=== PATIENT | male | born 1955 | race Caucasian/White ===

== ENCOUNTER → 2019-03-03 08:57 | Outpatient (BNVA) | payer MEDICARE, MEDICAID, SELFPAY | PROVIDERS: PCP Family Medicine; Referring Provider Psychiatry & Neurology Psychiatry; Visit Provider Nurse Practitioner | DX: F41.1 Generalized anxiety disorder (principal); F33.41 Major depressive disorder, recurrent, in partial remission | CPT/HCPCS: 99213 ==

== ENCOUNTER → 2019-05-02 08:43 | Outpatient (BNVA) | payer MEDICARE, MEDICAID, SELFPAY | PROVIDERS: PCP Nurse Practitioner; Visit Provider Social Worker Clinical | DX: F33.41 Major depressive disorder, recurrent, in partial remission (principal); F41.1 Generalized anxiety disorder | CPT/HCPCS: 90834 ==

== ENCOUNTER → 2019-05-04 08:34 | Outpatient (BNVA) | payer MEDICARE, MEDICAID, SELFPAY | PROVIDERS: PCP Nurse Practitioner; Visit Provider Anesthesiology | DX: M25.561 Pain in right knee (principal); M25.562 Pain in left knee; M54.9 Dorsalgia, unspecified; Z79.891 Long term (current) use of opiate analgesic | CPT/HCPCS: 99213; 99214 ==

== ENCOUNTER → 2019-05-24 08:46 | Outpatient (BNVA) | payer MEDICARE, MEDICAID, SELFPAY | PROVIDERS: PCP Nurse Practitioner; Visit Provider Social Worker Clinical | DX: F33.41 Major depressive disorder, recurrent, in partial remission (principal); F41.1 Generalized anxiety disorder | CPT/HCPCS: 90834 ==

== ENCOUNTER → 2019-05-26 07:17 | Outpatient (BNVA) | payer MEDICARE, MEDICAID, SELFPAY | PROVIDERS: PCP Nurse Practitioner; Visit Provider Nurse Practitioner | DX: F41.1 Generalized anxiety disorder (principal); F33.41 Major depressive disorder, recurrent, in partial remission | CPT/HCPCS: 99214 ==

== ENCOUNTER → 2019-06-02 12:06 | Outpatient (BNVA) | payer MEDICARE, MEDICAID, SELFPAY | PROVIDERS: PCP Nurse Practitioner; Visit Provider Social Worker Clinical | DX: F33.41 Major depressive disorder, recurrent, in partial remission (principal); F41.1 Generalized anxiety disorder | CPT/HCPCS: 90834 ==

== ENCOUNTER → 2019-06-17 07:56 | Outpatient (BNVA) | payer MEDICARE, MEDICAID, SELFPAY | PROVIDERS: PCP Nurse Practitioner; Visit Provider Social Worker Clinical | DX: F33.41 Major depressive disorder, recurrent, in partial remission (principal); F41.1 Generalized anxiety disorder | CPT/HCPCS: 90834 ==

== ENCOUNTER → 2019-07-11 08:19 | Outpatient (BNVA) | payer MEDICARE, MEDICAID, SELFPAY | PROVIDERS: PCP Nurse Practitioner; Visit Provider Social Worker Clinical | DX: F33.41 Major depressive disorder, recurrent, in partial remission (principal); F41.1 Generalized anxiety disorder | CPT/HCPCS: 90834 ==

== ENCOUNTER → 2019-07-26 08:20 | Outpatient (BNVA) | payer MEDICARE, MEDICAID, SELFPAY | PROVIDERS: PCP Nurse Practitioner; Visit Provider Nurse Practitioner | DX: F33.41 Major depressive disorder, recurrent, in partial remission (principal); F41.1 Generalized anxiety disorder | CPT/HCPCS: 99213 ==

== ENCOUNTER → 2019-07-28 08:49 | Outpatient (BNVA) | payer MEDICARE, MEDICAID, SELFPAY | PROVIDERS: PCP Nurse Practitioner; Visit Provider Social Worker Clinical | DX: F41.1 Generalized anxiety disorder (principal); F33.41 Major depressive disorder, recurrent, in partial remission | CPT/HCPCS: 90834 ==

== ENCOUNTER 2019-07-28 20:00 | Outpatient (CLI) | payer MEDICARE, MEDICAID, SELFPAY | END 2019-07-28 20:01 | disposition home or self-care (01) | LOC: SLEEP 07-29 09:40 | PROVIDERS: PCP Nurse Practitioner; Visit Provider Nurse Practitioner | DX: G47.33 Obstructive sleep apnea (adult) (pediatric) (principal); F41.1 Generalized anxiety disorder; F33.41 Major depressive disorder, recurrent, in partial remission | CPT/HCPCS: 90834; 95811 ==

== ENCOUNTER → 2019-08-03 13:36 | Outpatient (BNVA) | payer MEDICARE, MEDICAID, SELFPAY | PROVIDERS: PCP Nurse Practitioner; Visit Provider Anesthesiology | DX: M25.562 Pain in left knee (principal); M54.9 Dorsalgia, unspecified; Z79.891 Long term (current) use of opiate analgesic | CPT/HCPCS: 99213; 99214 ==

== ENCOUNTER → 2019-08-16 07:58 | Outpatient (BNVA) | payer MEDICARE, MEDICAID, SELFPAY | PROVIDERS: PCP Nurse Practitioner; Visit Provider Social Worker Clinical | DX: F41.1 Generalized anxiety disorder (principal); F33.41 Major depressive disorder, recurrent, in partial remission | CPT/HCPCS: 90834 ==

== ENCOUNTER → 2019-09-06 08:12 | Outpatient (BNVA) | payer MEDICARE, MEDICAID, SELFPAY | PROVIDERS: PCP Nurse Practitioner; Visit Provider Social Worker Clinical | DX: F33.41 Major depressive disorder, recurrent, in partial remission (principal); F41.1 Generalized anxiety disorder | CPT/HCPCS: 90834 ==

== ENCOUNTER 2019-09-19 11:10 | Outpatient (CLI) | payer MEDICARE, MEDICAID, SELFPAY ==
[2019-09-19 11:59] LABS: Basophils # 0.1 10^3/uL (0.0-0.1); Basophils % 0.8 %; Eosinophils # 0.2 10^3/uL (0.0-0.8); Eosinophils % 3.4 %; Hematocrit 43.2 % (42.0-52.0); Hemoglobin 13.8 g/dL (11.7-16.6); Lymphocytes % 16.7 %; Mean Corpuscular HGB Conc 31.9 g/dL (30.0-36.0); Mean Corpuscular Volume 90.8 fL (80-94); Mean Platelet Volume 9.3 fL (7.4-10.4); Monocytes # 0.5 10^3/uL (0.2-0.9); Monocytes % 7.3 %; Neutrophils # 4.42 10^3/uL (1.8-7.7); Neutrophils % 71.6 %; Nucleated Red Blood Cells % 0 %; Platelet Count 225 10^3/cmm (130-400); Red Blood Count 4.76 10^6/uL (4.1-5.3); Red Cell Distribution Width 13.4 % (12.1-15.1); White Blood Count 6.2 10^3/uL (4.0-10.0)
[2019-09-19 12:21] LABS: Alanine Aminotransferase 19 U/L (0-41); Albumin Level 4.4 g/dL (3.5-5.2); Alkaline Phosphatase 60 IU/L (40-130); Anion Gap 13.6 (5-19); Aspartate Amino Transferase 19 U/L (0-40); Blood Urea Nitrogen 14 mg/dL (8-23); Calcium 9.1 mg/dL (8.5-10.5); Carbon Dioxide 28 mmol/L (22-29); Chloride 100 mmol/L (98-107); Glomerular Filtration Rate 96.7 mL/min (90-130); Glucose 113 mg/dL (65-115); Osmolality Calculated 281 mOsm/kg (285-295); Potassium 4.6 mmol/L (3.5-5.1); Sodium 137 mmol/L (136-145); Total Bilirubin 0.3 mg/dL (0.15-1.2); Total Protein 7.4 g/dL (6.6-8.7)
[2019-09-19 12:27] LABS: ABG PCO2 44.2 mmHg (35-45); Alveolar-Arterial Oxygen Gradi 2.8 mmHg (5-10); Arterial Blood Gas Hematocrit 46.4 % (42-52); Blood Gas Allen Test Pos; Blood Gas Operator Identificat glc; Blood Gas Sample Site Radial, right; Blood Gas Sample Type Arterial; Carboxyhemoglobin 0.8 %THgb (0.4-20.1); HCO3 ABG 27.4 mmol/L (22-26); HGB O2 Sat 93.8 % (95-100); Ionized Calcium Level - ABG 1.2 mmol/L (1.1-1.4); Methemoglobin 0.7 % (0.4-1.5); Oxygen Device ROOM AIR; Oxygen Saturation ABG 95.2; Potassium Level - ABG 4.3 mmol/L (3.5-5.0); Total Hemoglobin 15.1 g/dL (14-18)
[2019-09-19 13:14] LABS: Estmated Average Glucose 151; Hemoglobin A1C 6.9 % (4.0-6.0)
[2019-09-23 17:05] LABS: Vit D 1,25 (Oh)2, Total 33 pg/mL (18-72); Vit D2 1,25 (Oh)2 <8 pg/mL; Vit D3 1,25 (Oh)2 33 pg/mL
== END 2019-09-19 11:11 | disposition home or self-care (01) ==
LOC: LAB 11:14
PROVIDERS: PCP Physician Assistant; Visit Provider Internal Medicine Pulmonary Disease
DX: E66.2 Morbid (severe) obesity with alveolar hypoventilation (principal); G47.33 Obstructive sleep apnea (adult) (pediatric)
CPT/HCPCS: 36600; 80051; 80053; 82652; 82810; 83036; 83986; 84443; 85025

== ENCOUNTER → 2019-09-27 08:36 | Outpatient (BNVA) | payer MEDICARE, MEDICAID, SELFPAY | PROVIDERS: PCP Physician Assistant; Visit Provider Social Worker Clinical | DX: F33.1 Major depressive disorder, recurrent, moderate (principal); F41.1 Generalized anxiety disorder | CPT/HCPCS: 90791 ==

== ENCOUNTER → 2019-09-29 09:28 | Outpatient (BNVA) | payer MEDICARE, MEDICAID, SELFPAY | PROVIDERS: PCP Physician Assistant; Visit Provider Nurse Practitioner | DX: F33.41 Major depressive disorder, recurrent, in partial remission (principal); F41.1 Generalized anxiety disorder | CPT/HCPCS: 99213 ==

== ENCOUNTER → 2019-10-27 07:25 | Outpatient (BNVA) | payer MEDICARE, MEDICAID, SELFPAY | PROVIDERS: PCP Physician Assistant; Visit Provider Social Worker Clinical | DX: F33.41 Major depressive disorder, recurrent, in partial remission (principal); F41.1 Generalized anxiety disorder | CPT/HCPCS: 90834 ==

== ENCOUNTER → 2019-11-01 08:51 | Outpatient (BNVA) | payer MEDICARE, MEDICAID, SELFPAY | PROVIDERS: PCP Physician Assistant; Visit Provider Anesthesiology | DX: M25.562 Pain in left knee (principal); M25.561 Pain in right knee; M54.9 Dorsalgia, unspecified; Z79.891 Long term (current) use of opiate analgesic | CPT/HCPCS: 99214 ==

== ENCOUNTER → 2019-11-17 09:01 | Outpatient (BNVA) | payer MEDICARE, MEDICAID, SELFPAY | PROVIDERS: PCP Physician Assistant; Visit Provider Social Worker Clinical | DX: F33.41 Major depressive disorder, recurrent, in partial remission (principal); F41.1 Generalized anxiety disorder | CPT/HCPCS: 90834 ==

== ENCOUNTER → 2019-11-24 07:48 | Outpatient (BNVA) | payer MEDICARE, MEDICAID, SELFPAY | PROVIDERS: PCP Physician Assistant; Visit Provider Nurse Practitioner | DX: F33.41 Major depressive disorder, recurrent, in partial remission (principal); F41.1 Generalized anxiety disorder | CPT/HCPCS: 99213 ==

== ENCOUNTER → 2019-12-01 07:45 | Outpatient (BNVA) | payer MEDICARE, MEDICAID, SELFPAY | PROVIDERS: PCP Physician Assistant; Visit Provider Social Worker Clinical | DX: F33.41 Major depressive disorder, recurrent, in partial remission (principal); F41.1 Generalized anxiety disorder | CPT/HCPCS: 90834 ==

== ENCOUNTER → 2019-12-22 08:11 | Outpatient (BNVA) | payer MEDICARE, MEDICAID, SELFPAY | PROVIDERS: PCP Physician Assistant; Visit Provider Social Worker Clinical | DX: F33.41 Major depressive disorder, recurrent, in partial remission (principal); F41.1 Generalized anxiety disorder | CPT/HCPCS: 90834 ==

== ENCOUNTER → 2020-01-05 07:48 | Outpatient (BNVA) | payer MEDICARE, MEDICAID, SELFPAY | PROVIDERS: PCP Physician Assistant; Visit Provider Social Worker Clinical | DX: F33.41 Major depressive disorder, recurrent, in partial remission (principal); F41.1 Generalized anxiety disorder | CPT/HCPCS: 90834 ==

== ENCOUNTER → 2020-01-10 07:37 | Outpatient (BNVA) | payer MEDICARE, MEDICAID, SELFPAY | PROVIDERS: PCP Physician Assistant; Visit Provider Nurse Practitioner | DX: F41.1 Generalized anxiety disorder (principal); F33.41 Major depressive disorder, recurrent, in partial remission | CPT/HCPCS: 99213 ==

== ENCOUNTER → 2020-01-31 08:22 | Outpatient (BNVA) | payer MEDICARE, MEDICAID, SELFPAY | PROVIDERS: PCP Physician Assistant; Visit Provider Social Worker Clinical | DX: F33.41 Major depressive disorder, recurrent, in partial remission (principal); F41.1 Generalized anxiety disorder | CPT/HCPCS: 90834 ==

== ENCOUNTER → 2020-02-07 11:34 | Outpatient (BNVA) | payer MEDICARE, MEDICAID, SELFPAY | PROVIDERS: PCP Physician Assistant; Visit Provider Anesthesiology | DX: M25.562 Pain in left knee (principal); M25.561 Pain in right knee; M54.9 Dorsalgia, unspecified; Z79.891 Long term (current) use of opiate analgesic | CPT/HCPCS: 99213 ==

== ENCOUNTER → 2020-02-21 07:35 | Outpatient (BNVA) | payer MEDICARE, MEDICAID, SELFPAY | PROVIDERS: PCP Physician Assistant; Visit Provider Nurse Practitioner | DX: F33.41 Major depressive disorder, recurrent, in partial remission (principal); F41.1 Generalized anxiety disorder; G47.33 Obstructive sleep apnea (adult) (pediatric) | CPT/HCPCS: 99214 ==

== ENCOUNTER → 2020-02-28 08:52 | Outpatient (BNVA) | payer MEDICARE, MEDICAID, SELFPAY | PROVIDERS: PCP Physician Assistant; Visit Provider Social Worker Clinical | DX: F33.41 Major depressive disorder, recurrent, in partial remission (principal); F41.1 Generalized anxiety disorder | CPT/HCPCS: 90834 ==

== ENCOUNTER 2020-03-08 11:00 | Outpatient (CLI) | payer MEDICARE, MEDICAID, SELFPAY | END 2020-03-08 11:01 | disposition home or self-care (01) | LOC: SLEEP 03-09 10:18 | PROVIDERS: PCP Physician Assistant; Visit Provider Internal Medicine Pulmonary Disease | DX: G47.33 Obstructive sleep apnea (adult) (pediatric) (principal) | CPT/HCPCS: 94762 ==

== ENCOUNTER → 2020-03-13 08:41 | Outpatient (BNVA) | payer MEDICARE, MEDICAID, SELFPAY | PROVIDERS: PCP Physician Assistant; Visit Provider Social Worker Clinical | DX: F33.41 Major depressive disorder, recurrent, in partial remission (principal); F41.1 Generalized anxiety disorder | CPT/HCPCS: 90834 ==

== ENCOUNTER → 2020-03-27 08:42 | Outpatient (BNVA) | payer MEDICARE, MEDICAID, SELFPAY | PROVIDERS: PCP Physician Assistant; Visit Provider Social Worker Clinical | DX: F33.41 Major depressive disorder, recurrent, in partial remission (principal); F41.1 Generalized anxiety disorder | CPT/HCPCS: 90834 ==

== ENCOUNTER → 2020-04-03 07:41 | Outpatient (BNVA) | payer MEDICARE, MEDICAID, SELFPAY | PROVIDERS: PCP Physician Assistant; Visit Provider Nurse Practitioner | DX: F33.41 Major depressive disorder, recurrent, in partial remission (principal); F41.1 Generalized anxiety disorder; G47.33 Obstructive sleep apnea (adult) (pediatric) | CPT/HCPCS: 99214 ==

== ENCOUNTER → 2020-04-19 07:53 | Outpatient (BNVA) | payer MEDICARE, MEDICAID, SELFPAY | PROVIDERS: PCP Physician Assistant; Visit Provider Social Worker Clinical | DX: F33.41 Major depressive disorder, recurrent, in partial remission (principal); F41.1 Generalized anxiety disorder | CPT/HCPCS: 90834 ==

== ENCOUNTER 2020-04-20 09:22 | Outpatient (CLI) | payer MEDICARE, MEDICAID, SELFPAY ==
--- NOTE | 2020-04-20 09:30 | USCV_ITS ---
Shahla Lasha Age: 65 Gender: M : 1955 Exam Date: 04/20/2020 09:43 Ordering Phys: Abdullahi Hendrickson MD Technologist: Bindu Montalvo [place] [facility] [place]: SLEEP [place]NEA BP: 140 / 70 HR: 83 Rhythm: Sinus Technical Quality: Technically difficult study MEASUREMENTS (Male / Female) Normal Values 2D ECHO LV Diastolic Diameter PLAX 5.1 cm 4.2 - 5.9 / 3.9 - 5.3 cm LV Systolic Diameter PLAX 3.1 cm LV Chamber Size 3.8 cm IVS Diastolic Thickness 0.9 cm 0.6 - 1.0 / 0.6 - 0.9 cm IVS Systolic Thickness 1.6 cm LVPW Diastolic Thickness 0.9 cm 0.6 - 1.0 / 0.6 - 0.9 cm LVPW Systolic Thickness 1.5 cm RV Chamber Size 2.3 cm LVOT Diameter 2.0 cm LV Ejection Fraction 2D Teich 68.5 % LV Ejection Fraction MOD 2C 55.2 % LV Ejection Fraction 2C AL 59.1 % LA Diameter 3.9 cm LA Width 3.4 cm LA Height 4.6 cm RA Width 3.5 cm RA Height 3.9 cm Aorta at Sinotubular Diameter 3.5 cm M-MODE LV Diastolic Diameter MM 6.3 cm 4.2 - 5.9 / 3.9 - 5.3 cm LV Systolic Diameter MM 4.5 cm LV Ejection Fraction MM Teich 54.5 % IVS Diastolic Thickness MM 0.9 cm 0.6 - 1.0 / 0.6 - 0.9 cm IVS Systolic Thickness MM 1.5 cm LVPW Diastolic Thickness MM 1.2 cm 0.6 - 1.0 / 0.6 - 0.9 cm LVPW Systolic Thickness MM 1.6 cm Aortic Annulus Diameter 3.6 cm LA Ao Ratio MM 1.3 MV E Point Septal Separation 0.8 cm DOPPLER AV Peak Velocity 142.0 cm/s LVOT Peak Velocity 81.0 cm/s AV Area Cont Eq vti 2.2 cm squared AV Area Cont Eq pk 1.8 cm squared MV Area PHT 4.9 cm squared Mitral E to A Ratio 0.9 MV E' Velocity 52.0 cm/s Mitral E to MV E' Ratio 18.4 Mitral E to LV E' Lateral Ratio 19.1 Mitral E to LV E' Septal Ratio 17.8 TR Peak Velocity 127.7 cm/s TR Peak Gradient 6.5 mmHg TR Mean Velocity 77.1 cm/s TR Mean Gradient 2.8 mmHg TR Velocity Time Integral 30.1 cm TV Peak E Velocity 77.0 cm/s Right Atrial Pressure 3.0 mmHg Pulmonary Artery Systolic Pressu 9.5 mmHg PV Peak Velocity 68.0 cm/s RV Acceleration Time 0.1 s RV Ejection Time 0.3 s RV AcT/ET 0.4 FINDINGS Left Ventricle Normal left ventricular size. Grossly LV systolic function is normal. Regional wall motion abnormalities cannot be assessed because of limited visualization. Grade 1 diastolic dysfunction is seen. Right Ventricle The right ventricle is normal in size and function. Right Atrium The right atrium is normal in size. Left Atrium The left atrium is normal in size. Mitral Valve Structurally normal mitral valve without significant stenosis or prolapse. There is no mitral regurgitation. Aortic Valve Grossly aortic valve is thickened without significant sclerosis or stenosis. There is no aortic regurgitation. Tricuspid Valve Structurally normal tricuspid valve without significant stenosis or regurgitation. Insufficient TR jet to calculate RVSP. Pulmonic Valve Structurally normal pulmonic valve without significant stenosis. There is no pulmonic regurgitation. Pericardium Normal pericardium without effusion. Aorta Normal ascending aorta dimension. CONCLUSIONS This is a limited quality echocardiogram because of poor visualization of cardiac structures. LV systolic function is grossly normal. Grade 1 diastolic dysfunction is seen. No gross valvular abnormalities. No comparison studies are available. Tommie Cline MD (Electronically Signed) Final Date: 25 April 2020 19:51 S
== END 2020-04-20 09:23 | disposition home or self-care (01) ==
PROVIDERS: PCP Physician Assistant; Visit Provider Internal Medicine Pulmonary Disease
DX: R22.43 Localized swelling, mass and lump, lower limb, bilateral (principal); G47.30 Sleep apnea, unspecified
CPT/HCPCS: 93306

== ENCOUNTER → 2020-05-03 09:59 | Outpatient (BNVA) | payer MEDICARE, MEDICAID, SELFPAY | PROVIDERS: PCP Physician Assistant; Visit Provider Anesthesiology | DX: M25.561 Pain in right knee (principal); M25.562 Pain in left knee; Z79.891 Long term (current) use of opiate analgesic | CPT/HCPCS: 99213 ==

== ENCOUNTER → 2020-05-08 08:33 | Outpatient (BNVA) | payer MEDICARE, MEDICAID, SELFPAY | PROVIDERS: PCP Physician Assistant; Visit Provider Social Worker Clinical | DX: F33.41 Major depressive disorder, recurrent, in partial remission (principal); F41.1 Generalized anxiety disorder | CPT/HCPCS: 90834 ==

== ENCOUNTER 2020-05-22 20:00 | Outpatient (CLI) | payer MEDICARE, MEDICAID, SELFPAY | END 2020-05-22 20:01 | disposition home or self-care (01) | LOC: SLEEP 05-23 08:29 | PROVIDERS: PCP Physician Assistant; Visit Provider Internal Medicine Pulmonary Disease | DX: G47.33 Obstructive sleep apnea (adult) (pediatric) (principal) | CPT/HCPCS: 95811 ==

== ENCOUNTER → 2020-05-24 08:36 | Outpatient (BNVA) | payer MEDICARE, MEDICAID, SELFPAY | PROVIDERS: PCP Physician Assistant; Visit Provider Social Worker Clinical | DX: F33.41 Major depressive disorder, recurrent, in partial remission (principal); F41.1 Generalized anxiety disorder | CPT/HCPCS: 90834 ==

== ENCOUNTER → 2020-07-03 08:53 | Outpatient (BNVA) | payer MEDICARE, MEDICAID, SELFPAY | PROVIDERS: PCP Physician Assistant; Visit Provider Anesthesiology | DX: M25.562 Pain in left knee (principal); M25.561 Pain in right knee; Z79.891 Long term (current) use of opiate analgesic | CPT/HCPCS: 99213 ==

== ENCOUNTER → 2020-07-09 07:24 | Outpatient (BNVA) | payer MEDICARE, MEDICAID, SELFPAY | PROVIDERS: PCP Physician Assistant; Visit Provider Nurse Practitioner | DX: F33.41 Major depressive disorder, recurrent, in partial remission (principal); F41.1 Generalized anxiety disorder | CPT/HCPCS: 99214 ==

== ENCOUNTER → 2020-07-25 08:18 | Outpatient (BNVA) | payer MEDICARE, MEDICAID, SELFPAY | PROVIDERS: PCP Physician Assistant; Visit Provider Social Worker Clinical | DX: F41.1 Generalized anxiety disorder (principal); F33.41 Major depressive disorder, recurrent, in partial remission | CPT/HCPCS: 90834 ==

== ENCOUNTER → 2020-08-06 07:38 | Outpatient (BNVA) | payer MEDICARE, MEDICAID, SELFPAY | PROVIDERS: PCP Physician Assistant; Visit Provider Nurse Practitioner | DX: F41.1 Generalized anxiety disorder (principal); F33.41 Major depressive disorder, recurrent, in partial remission | CPT/HCPCS: 99214 ==

== ENCOUNTER → 2020-08-24 09:17 | Outpatient (BNVA) | payer MEDICARE, MEDICAID, SELFPAY | PROVIDERS: PCP Physician Assistant; Visit Provider Social Worker Clinical | DX: F41.1 Generalized anxiety disorder (principal); F33.41 Major depressive disorder, recurrent, in partial remission | CPT/HCPCS: 90834 ==

== ENCOUNTER → 2020-09-12 10:19 | Outpatient (BNVA) | payer MEDICARE, MEDICAID, SELFPAY | PROVIDERS: PCP Physician Assistant; Visit Provider Social Worker Clinical | DX: F41.1 Generalized anxiety disorder (principal); F33.41 Major depressive disorder, recurrent, in partial remission | CPT/HCPCS: 90834 ==

== ENCOUNTER → 2020-09-17 07:06 | Outpatient (BNVA) | payer MEDICARE, MEDICAID, SELFPAY | PROVIDERS: PCP Physician Assistant; Visit Provider Nurse Practitioner | DX: F41.1 Generalized anxiety disorder (principal); F33.41 Major depressive disorder, recurrent, in partial remission | CPT/HCPCS: 99214 ==

== ENCOUNTER → 2020-10-09 08:20 | Outpatient (BNVA) | payer MEDICARE, MEDICAID, SELFPAY | PROVIDERS: PCP Physician Assistant; Visit Provider Social Worker Clinical | DX: F41.1 Generalized anxiety disorder (principal); F33.41 Major depressive disorder, recurrent, in partial remission | CPT/HCPCS: 90834 ==

== ENCOUNTER → 2020-10-15 08:03 | Outpatient (BNVA) | payer MEDICARE, MEDICAID, SELFPAY | PROVIDERS: PCP Physician Assistant; Visit Provider Nurse Practitioner | DX: F33.41 Major depressive disorder, recurrent, in partial remission (principal); F41.1 Generalized anxiety disorder | CPT/HCPCS: 99214 ==

== ENCOUNTER → 2020-10-16 08:51 | Outpatient (BNVA) | payer MEDICARE, MEDICAID, SELFPAY | PROVIDERS: PCP Physician Assistant; Visit Provider Anesthesiology | DX: M25.561 Pain in right knee (principal); M25.562 Pain in left knee; Z79.891 Long term (current) use of opiate analgesic | CPT/HCPCS: 99213 ==

== ENCOUNTER → 2020-10-31 09:00 | Outpatient (BNVA) | payer MEDICARE, MEDICAID, SELFPAY | PROVIDERS: PCP Physician Assistant; Visit Provider Social Worker Clinical | DX: F41.1 Generalized anxiety disorder (principal); F33.41 Major depressive disorder, recurrent, in partial remission | CPT/HCPCS: 90834 ==

== ENCOUNTER → 2020-11-12 07:29 | Outpatient (BNVA) | payer MEDICARE, MEDICAID, SELFPAY | PROVIDERS: PCP Physician Assistant; Visit Provider Nurse Practitioner | DX: F33.41 Major depressive disorder, recurrent, in partial remission (principal); F41.1 Generalized anxiety disorder | CPT/HCPCS: 99214 ==

== ENCOUNTER → 2020-12-10 07:41 | Outpatient (BNVA) | payer MEDICARE, MEDICAID, SELFPAY | PROVIDERS: PCP Physician Assistant; Visit Provider Social Worker Clinical | DX: F41.1 Generalized anxiety disorder (principal); F33.41 Major depressive disorder, recurrent, in partial remission | CPT/HCPCS: 90834 ==

== ENCOUNTER → 2020-12-25 07:44 | Outpatient (BNVA) | payer MEDICARE, MEDICAID, SELFPAY | PROVIDERS: PCP Physician Assistant; Visit Provider Social Worker Clinical | DX: F41.1 Generalized anxiety disorder (principal); F33.41 Major depressive disorder, recurrent, in partial remission | CPT/HCPCS: 90834 ==

== ENCOUNTER → 2021-01-09 08:59 | Outpatient (BNVA) | payer MEDICARE, MEDICAID, SELFPAY | PROVIDERS: PCP Physician Assistant; Visit Provider Anesthesiology | DX: G89.29 Other chronic pain (principal); M25.561 Pain in right knee; M25.562 Pain in left knee; M54.9 Dorsalgia, unspecified; E11.9 Type 2 diabetes mellitus without complications; Z79.891 Long term (current) use of opiate analgesic; Z79.84 Long term (current) use of oral hypoglycemic drugs; Z79.899 Other long term (current) drug therapy | CPT/HCPCS: 99214 ==

== ENCOUNTER → 2021-01-21 08:07 | Outpatient (BNVA) | payer MEDICARE, MEDICAID, SELFPAY | PROVIDERS: PCP Physician Assistant; Visit Provider Social Worker Clinical | DX: F41.1 Generalized anxiety disorder (principal); F33.41 Major depressive disorder, recurrent, in partial remission | CPT/HCPCS: 90834 ==

== ENCOUNTER → 2021-02-06 07:22 | Outpatient (BNVA) | payer MEDICARE, MEDICAID, SELFPAY | PROVIDERS: PCP Physician Assistant; Visit Provider Nurse Practitioner | DX: F33.41 Major depressive disorder, recurrent, in partial remission (principal); F41.1 Generalized anxiety disorder | CPT/HCPCS: 99214 ==

== ENCOUNTER → 2021-02-13 07:49 | Outpatient (BNVA) | payer MEDICARE, MEDICAID, SELFPAY | PROVIDERS: PCP Physician Assistant; Visit Provider Social Worker Clinical | DX: F33.41 Major depressive disorder, recurrent, in partial remission (principal); F41.1 Generalized anxiety disorder | CPT/HCPCS: 90791 ==

== ENCOUNTER → 2021-03-12 07:23 | Outpatient (BNVA) | payer MEDICARE, MEDICAID, SELFPAY | PROVIDERS: PCP Physician Assistant; Visit Provider Social Worker Clinical | DX: F41.1 Generalized anxiety disorder (principal); F33.41 Major depressive disorder, recurrent, in partial remission | CPT/HCPCS: 90834 ==

== ENCOUNTER → 2021-03-26 07:12 | Outpatient (BNVA) | payer MEDICARE, MEDICAID, SELFPAY | PROVIDERS: PCP Physician Assistant; Visit Provider Social Worker Clinical | DX: F41.1 Generalized anxiety disorder (principal); F33.41 Major depressive disorder, recurrent, in partial remission | CPT/HCPCS: 90834 ==

== ENCOUNTER → 2021-04-03 09:13 | Outpatient (BNVA) | payer MEDICARE, MEDICAID, SELFPAY | PROVIDERS: PCP Physician Assistant; Visit Provider Anesthesiology | DX: G89.29 Other chronic pain (principal); M25.562 Pain in left knee; M25.561 Pain in right knee; M54.9 Dorsalgia, unspecified; Z79.891 Long term (current) use of opiate analgesic | CPT/HCPCS: 99214 ==

== ENCOUNTER → 2021-04-09 07:21 | Outpatient (BNVA) | payer MEDICARE, MEDICAID, SELFPAY | PROVIDERS: PCP Physician Assistant; Visit Provider Social Worker Clinical | DX: F41.1 Generalized anxiety disorder (principal); F33.41 Major depressive disorder, recurrent, in partial remission | CPT/HCPCS: 90834 ==

== ENCOUNTER → 2021-04-23 08:22 | Outpatient (BNVA) | payer MEDICARE, MEDICAID, SELFPAY | PROVIDERS: PCP Physician Assistant; Visit Provider Social Worker Clinical | DX: F41.1 Generalized anxiety disorder (principal); F33.41 Major depressive disorder, recurrent, in partial remission | CPT/HCPCS: 90834 ==

== ENCOUNTER → 2021-05-01 07:39 | Outpatient (BNVA) | payer MEDICARE, MEDICAID, SELFPAY | PROVIDERS: PCP Physician Assistant; Visit Provider Nurse Practitioner | DX: F33.41 Major depressive disorder, recurrent, in partial remission (principal); F41.1 Generalized anxiety disorder | CPT/HCPCS: 99214 ==

== ENCOUNTER → 2021-05-08 08:08 | Outpatient (BNVA) | payer MEDICARE, MEDICAID, SELFPAY | PROVIDERS: PCP Physician Assistant; Visit Provider Social Worker Clinical | DX: F41.1 Generalized anxiety disorder (principal); F33.41 Major depressive disorder, recurrent, in partial remission | CPT/HCPCS: 90834 ==

== ENCOUNTER → 2021-05-21 07:39 | Outpatient (BNVA) | payer MEDICARE, MEDICAID, SELFPAY | PROVIDERS: PCP Physician Assistant; Visit Provider Social Worker Clinical | DX: F41.1 Generalized anxiety disorder (principal); F33.41 Major depressive disorder, recurrent, in partial remission | CPT/HCPCS: 90834 ==

== ENCOUNTER → 2021-06-04 07:23 | Outpatient (BNVA) | payer MEDICARE, MEDICAID, SELFPAY | PROVIDERS: PCP Physician Assistant; Visit Provider Social Worker Clinical | DX: F41.1 Generalized anxiety disorder (principal); F33.41 Major depressive disorder, recurrent, in partial remission | CPT/HCPCS: 90834 ==

== ENCOUNTER → 2021-06-25 07:11 | Outpatient (BNVA) | payer MEDICARE, MEDICAID, SELFPAY | PROVIDERS: PCP Physician Assistant; Visit Provider Social Worker Clinical | DX: F41.1 Generalized anxiety disorder (principal); F33.41 Major depressive disorder, recurrent, in partial remission | CPT/HCPCS: 90834 ==

== ENCOUNTER → 2021-07-02 09:52 | Outpatient (BNVA) | payer MEDICARE, MEDICAID, SELFPAY | PROVIDERS: PCP Physician Assistant; Visit Provider Social Worker Clinical | DX: F41.1 Generalized anxiety disorder (principal); F33.41 Major depressive disorder, recurrent, in partial remission | CPT/HCPCS: 90834 ==

== ENCOUNTER → 2021-07-04 10:48 | Outpatient (BNVA) | payer MEDICARE, MEDICAID, SELFPAY | PROVIDERS: PCP Physician Assistant; Visit Provider Nurse Practitioner Psychiatric/Mental Health | DX: F33.41 Major depressive disorder, recurrent, in partial remission (principal); F41.1 Generalized anxiety disorder; G47.33 Obstructive sleep apnea (adult) (pediatric); Z79.899 Other long term (current) drug therapy; M25.569 Pain in unspecified knee | CPT/HCPCS: 99214 ==

== ENCOUNTER → 2021-07-16 07:32 | Outpatient (BNVA) | payer MEDICARE, MEDICAID, SELFPAY | PROVIDERS: PCP Physician Assistant; Visit Provider Social Worker Clinical | DX: F41.1 Generalized anxiety disorder (principal); F33.41 Major depressive disorder, recurrent, in partial remission | CPT/HCPCS: 90834 ==

== ENCOUNTER → 2021-07-23 07:36 | Outpatient (BNVA) | payer MEDICARE, MEDICAID, SELFPAY | PROVIDERS: PCP Physician Assistant; Visit Provider Social Worker Clinical | DX: F41.1 Generalized anxiety disorder (principal); F33.41 Major depressive disorder, recurrent, in partial remission | CPT/HCPCS: 90834 ==

== ENCOUNTER → 2021-07-30 07:31 | Outpatient (BNVA) | payer MEDICARE, MEDICAID, SELFPAY | PROVIDERS: PCP Physician Assistant; Visit Provider Social Worker Clinical | DX: F41.1 Generalized anxiety disorder (principal); F33.41 Major depressive disorder, recurrent, in partial remission | CPT/HCPCS: 90834 ==

== ENCOUNTER → 2021-08-06 08:05 | Outpatient (BNVA) | payer MEDICARE, MEDICAID, SELFPAY | PROVIDERS: PCP Physician Assistant; Visit Provider Social Worker Clinical | DX: F41.1 Generalized anxiety disorder (principal); F33.2 Major depressive disorder, recurrent severe without psychotic features | CPT/HCPCS: 90834 ==

== ENCOUNTER → 2021-08-13 07:40 | Outpatient (BNVA) | payer MEDICARE, MEDICAID, SELFPAY | PROVIDERS: PCP Physician Assistant; Visit Provider Social Worker Clinical | DX: F41.1 Generalized anxiety disorder (principal); F33.2 Major depressive disorder, recurrent severe without psychotic features | CPT/HCPCS: 90834 ==

== ENCOUNTER → 2021-08-20 07:34 | Outpatient (BNVA) | payer MEDICARE, MEDICAID, SELFPAY | PROVIDERS: PCP Physician Assistant; Visit Provider Social Worker Clinical | DX: F41.1 Generalized anxiety disorder (principal); F33.2 Major depressive disorder, recurrent severe without psychotic features | CPT/HCPCS: 90834 ==

== ENCOUNTER → 2021-08-22 07:12 | Outpatient (BNVA) | payer MEDICARE, MEDICAID, SELFPAY | PROVIDERS: PCP Physician Assistant; Visit Provider Nurse Practitioner Psychiatric/Mental Health | DX: F41.1 Generalized anxiety disorder (principal); F33.41 Major depressive disorder, recurrent, in partial remission; M25.569 Pain in unspecified knee; G47.33 Obstructive sleep apnea (adult) (pediatric) | CPT/HCPCS: 99214 ==

== ENCOUNTER 2022-05-24 14:36 | Inpatient (IN) | payer MEDICARE, MEDICAID, SELFPAY ==
[2022-05-24] VITALS (15 sets, daily range): BP systolic 136–162; BP diastolic 78–102; PULSE 80–93; RESP 17–18; TEMP 36.4–36.9; O2SAT 84–100; BMI 67.2
--- NOTE | 2022-05-24 14:58 | ECG_ITS ---
[facility] Test Date: 2022-05-24 Pat Name: Lasha Gale Department: Room: Gender: Male Valet: : 1955 Requested By: Lalo Vasquez Order Number: [id number] Reading MD: Piyush Chao Measurements Intervals [place] Rate: 81 P: 29 WA: 127 QRS: 146 QRSD: 97 T: 52 QT: 379 QTc: 440 Interpretive Statements SINUS RHYTHM POSSIBLE RIGHT VENTRICULAR HYPERTROPHY [SOME/ALL OF: PROMINENT R IN V1, LATE TRANSITION, RAD, SANDRA, SSS] Compared to ECG 05/26/2014 07:31:16 No significant changes Electronically Signed On 05-25-2022 19:01:43 CDT by Piyush Chao [id number]
--- NOTE | 2022-05-24 15:10 | W.ED.NAVMDI ---
HPI - Nausea/Vomiting/Diarrhea General: Chief complaint: Nausea/Vomiting/Diarrhea Stated complaint: weakness,N/V/D Time Seen by Provider: 05/24/22 14:57 Source: patient Mode of arrival: ambulatory History of Present Illness: 67-year-old male who presents to the emergency room complaining of abdominal discomfort. Symptoms began several days ago he equates it with decrease use of Wellbutrin. Initially had some constipation developed abdominal discomfort and then had eventually diarrhea not had a bowel movement since yesterday. He denies any medic easy melena hematemesis cough cramps no dysuria urgency or frequency. According to old notes and imaging reports he has a large mesenteric lipoma. It was followed For a time on CT the last CT done was June 21, 2014. Patient denies previous abdominal surgeries. MD elicited complaint: nausea, vomiting and diarrhea Onset (ago): day(s) Description of vomiting: watery and bilious Description of diarrhea: semi-solid Associated nausea: Yes Exacerbating factors: none Relieving factors: none Associated symtoms: Reports anxiety, bloating, anorexia, malaise, nausea and weakness; Denies altered mental status, change in vision, chest pain, cough, diaphoresis, decreased urine output, dizziness, dysuria, epistaxis, fatigue, fecal incontinence, fevers/chills, headache(s), myalgias, numbness, palpitations, rash, short of breath, syncope, tenesmus or tinnitus Review of Systems Const: Reports: malaise; Denies: fever(s), chills, fatigue or diaphoresis Eyes: Denies: change in vision ENMT: Denies: tinnitus or epistaxis Card: Denies: chest pain, palpitations or syncope Resp: Denies: dyspnea, productive cough or non-productive cough GI: Reports: abdominal pain, nausea, vomiting, diarrhea, bloating and GI cramping; Denies: fecal incontinence : Denies: flank pain, dysuria, urinary frequency or urinary urgency Skin/Breast: Denies: rash or pruritus Neuro: Denies: headache(s) or dizziness Psych: Reports: anxiety PFS ED PFSH: Medical History (Updated 05/15/22 @ 18:07 by Nasima Lucero, [email or web address]) Encounter for long-term opiate analgesic use Generalized anxiety disorder History of perforated ear drum Major depressive disorder, recurrent, in partial remission Major depressive disorder, recurrent, moderate Obesity Psychiatric care Family History Father Cancer stomach cancer Mother Hypertension Denies family history of Anesthesia complication Bleeding disorder Social History Smoking and tobacco status: never smoked Second hand smoke exposure: No Smoking risk assessment/counseling performed?: Yes Alcohol intake: never Lives independently: Yes Household members: spouse Housing: House Marital status: service: No Current occupational status: retired and disabled Current occupational exposures/hazards: No Pets and animals: No Current gender identity: Male Tiffany/Adventist: Buddhist Special tiffany needs: No Agree to transfusion: No Financial difficulty paying for basics: Decline to Answer Physical Exam Const: EXAM LIMITATIONS: no altered mental status GENERAL APPEARANCE: cooperative and comfortable ORIENTATION/CONSCIOUSNESS: Yes awake, Yes oriented to person, Yes oriented to place and Yes oriented to time HENMT: COMMON NORMALS: normocephalic, atraumatic and hearing grossly normal bilaterally HEAD & SCALP: normocephalic and atraumatic Resp: COMMON NORMALS: normal respiratory effort, No retractions, No use of accessory muscles and clear to auscultation bilaterally AUSCULTATION: clear to auscultation bilaterally Cardio: COMMON NORMALS: regular rate, regular rhythm and No murmurs present (Cardio) RATE: regular rate RHYTHM: regular rhythm GI: COMMON NORMALS: No hepatosplenomegaly present INSPECTION: Yes abdominal distension AUSCULTATION: Yes Hypoactive bowel sounds present PALPATION: Yes Tenderness to palpation present (GI) (Diffuse), No Guarding due to palpation present (GI) and Yes No hepatosplenomegaly present Extremity: COMMON NORMALS: normal to inspection, capillary refill normal, no clubbing, cyanosis or edema, no calf tenderness and no pedal edema Neuro: SENSORIUM/ORIENTATION: Yes oriented to person, Yes oriented to place and Yes oriented to time Skin: COMMON NORMALS: no rashes or lesions noted GENERAL SKIN EXAM: no rashes or lesions noted Course Vital Signs: Vital signs: Vital Signs Temperature 98.5 F 05/24/22 14:58 Pulse Rate 80 05/24/22 14:58 Respiratory Rate 18 05/24/22 14:58 Blood Pressure 162/86 05/24/22 16:00 Pulse Oximetry 94 05/24/22 17:30 MDM - Nausea/Vomiting/Diarrhea Medical Decision Making CT shows small bowel obstruction no clear transition point NG placed. Keep patient n.p.o. IV fluids. He also was hyponatremic although discussed with Dr. Treadwell he has been getting a lot of hyponatremia results on lab work on the floor that seem inappropriate we requested a redraw redraw for the sodium level. Initial lab result was 123 a repeat level was 134. Discussed with hospitalist and with Dr. Mckeon orders written. Medical Records I reviewed the patient's medical records. Lab Data I reviewed the patient's lab results. 05/24/22 15:17 05/24/22 15:17 Radiology Impressions Abdomen/Pelvis CT 05/24/22 15:18 IMPRESSION: 1. The findings as stated above are consistent with a mid to distal small bowel obstruction. 2. Fatty infiltration of the liver. Chest X-Ray 05/24/22 16:40 IMPRESSION: Distal aspect of the G-tube is positioned in the left upper quadrant abdomen in the expected location of the stomach. Laboratory Results WBC 6.5 10^3/uL (4.0-10.0) 05/24/22 15:17 RBC 4.33 10^6/uL (4.1-5.3) 05/24/22 15:17 Hgb 12.4 g/dL (11.7-16.6) 05/24/22 15:17 Hct 39.1 % (42.0-52.0) L 05/24/22 15:17 MCV 90.3 fl (80-94) 05/24/22 15:17 MCH 28.6 pg (28.0-34.0) 05/24/22 15:17 MCHC 31.7 g/dL (30.0-36.0) 05/24/22 15:17 RDW 13.3 % (12.1-15.1) 05/24/22 15:17 Plt Count 322 10^3/cmm (130-400) 05/24/22 15:17 MPV 9.8 fL (7.4-10.4) 05/24/22 15:17 Neut % (Auto) 77.8 % 05/24/22 15:17 Lymph % (Auto) 10.2 % 05/24/22 15:17 [place] % (Auto) 10.6 % 05/24/22 15:17 Eos % (Auto) 0.5 % 05/24/22 15:17 Baso % (Auto) 0.6 % 05/24/22 15:17 Neut # (Auto) 5.04 10^3/uL (1.8-7.7) 05/24/22 15:17 Lymph # (Auto) 0.7 10^3/uL (0.8-4.8) L 05/24/22 15:17 [place] # (Auto) 0.7 10^3/uL (0.2-0.9) 05/24/22 15:17 Eos # (Auto) 0.0 10^3/uL (0.0-0.8) 05/24/22 15:17 Baso # (Auto) 0.0 10^3/uL (0.0-0.1) 05/24/22 15:17 Nucleated RBC % (auto) 0 % 05/24/22 15:17 Nucleated RBCs # 0.0 /100WBC 05/24/22 15:17 Sodium 134 mmol/L (136-145) L 05/24/22 15:17 Sodium Cancelled 05/24/22 15:17 Potassium 3.7 mmol/L (3.5-5.1) 05/24/22 15:17 Potassium Cancelled 05/24/22 15:17 Chloride 89 mmol/L (98-107) L 05/24/22 15:17 Chloride Cancelled 05/24/22 15:17 Carbon Dioxide 31 mmol/L (22-29) H 05/24/22 15:17 Carbon Dioxide Cancelled 05/24/22 15:17 Anion Gap 17.7 (5-19) 05/24/22 15:17 Anion Gap Cancelled 05/24/22 15:17 BUN 12 mg/dL (8-23) 05/24/22 15:17 BUN Cancelled 05/24/22 15:17 Creatinine 0.7 mg/dL (0.7-1.2) 05/24/22 15:17 Creatinine Cancelled 05/24/22 15:17 GFR Calculation 111.8 mL/min (90-130) 05/24/22 15:17 GFR Calculation Cancelled 05/24/22 15:17 Glucose 212 mg/dL (65-115) H 05/24/22 15:17 Glucose Cancelled 05/24/22 15:17 Calculated Osmolality 284 mOsm/kg (285-295) L 05/24/22 15:17 Calculated Osmolality Cancelled 05/24/22 15:17 Calcium 9.5 mg/dL (8.5-10.5) 05/24/22 15:17 Calcium Cancelled 05/24/22 15:17 Total Bilirubin 0.3 mg/dL (0.15-1.2) 05/24/22 15:17 Total Bilirubin Cancelled 05/24/22 15:17 AST 18 U/L (0-40) 05/24/22 15:17 AST Cancelled 05/24/22 15:17 ALT 25 U/L (0-41) 05/24/22 15:17 ALT Cancelled 05/24/22 15:17 Alkaline Phosphatase 58 U/L (40-130) 05/24/22 15:17 Alkaline Phosphatase Cancelled 05/24/22 15:17 Total Protein 7.1 g/dL (6.6-8.7) 05/24/22 15:17 Total Protein Cancelled 05/24/22 15:17 Albumin 3.7 g/dL (3.5-5.2) 05/24/22 15:17 Albumin Cancelled 05/24/22 15:17 Globulin 3.4 g/dL (1.3-4.6) 05/24/22 15:17 Globulin Cancelled 05/24/22 15:17 Discharge Plan Discharge Admit Provider: Dwaine Treadwell Condition: Stable Coding Level of Care Code ED Accounting Coordinator for Chg Myra
--- NOTE | 2022-05-24 15:18 | CTR_ITS ---
PROCEDURE INFORMATION: Exam: CT Abdomen And Pelvis Without Contrast Exam date and time: 05/24/2022 3:43 PM Age: 67 years old Clinical indication: Abdominal pain; Generalized TECHNIQUE: Imaging protocol: Computed tomography of the abdomen and pelvis without contrast. Radiation optimization: All CT scans at this facility use at least one of these dose optimization techniques: automated exposure control; mA and/or kV adjustment per patient size (includes targeted exams where dose is matched to clinical indication); or iterative reconstruction. REPORTING DATA: Count of CT and Cardiac NM exams in prior 12 months: This patient has received 0 known CTs and 0 known cardiac nuclear medicine studies in the 12 months prior to the current study. COMPARISON: No relevant prior studies available. RADIATION DOSE METRICS: Total DLP (mGy-cm): 1423.43 FINDINGS: Liver: There is a diffuse decrease in hepatic parenchymal density, consistent with fatty infiltration. Gallbladder and bile ducts: Normal. No calcified stones. No ductal dilation. Pancreas: Nygx-wu-ddnqhynf fatty atrophy of the pancreas. Spleen: Normal. No splenomegaly. Adrenal glands: Normal. No mass. Kidneys and ureters: Normal. No hydronephrosis. Stomach and bowel: There are air-fluid levels in multiple dilated mid small bowel loops. Distal small bowel is collapsed. There is a small amount of air and stool scattered throughout the colon however the colon is relatively collapsed. Appendix: No evidence of appendicitis. Intraperitoneal space: Unremarkable. No free air. No significant fluid collection. Vasculature: Unremarkable. No abdominal aortic aneurysm. Lymph nodes: Unremarkable. No enlarged lymph nodes. Urinary bladder: Unremarkable as visualized. Reproductive: Unremarkable as visualized. Bones/joints: Unremarkable. No acute fracture. Soft tissues: Small fat containing umbilical hernia. There is edema in the subcutaneous soft tissues of the ventral abdomen most prominent surrounding the umbilicus. CT/CT abdomen pelvis wo con [id number] IMPRESSION: 1. The findings as stated above are consistent with a mid to distal small bowel obstruction. 2. Fatty infiltration of the liver.
[2022-05-24] MEDS: ondansetron 2 mg/ML SDV 2 mL 4 MG IVP (15:20)
[2022-05-24] MEDS: sodium chloride 0.9% 1,000 ML 999 ML IV (15:21)
[2022-05-24 15:32] LABS: Basophils % 0.6 %; Eosinophils % 0.5 %; Hematocrit 39.1 % (42.0-52.0); Hemoglobin 12.4 g/dL (11.7-16.6); Lymphocytes # 0.7 10^3/uL (0.8-4.8); Lymphocytes % 10.2 %; Mean Corpuscular HGB Conc 31.7 g/dL (30.0-36.0); Mean Corpuscular Hemoglobin 28.6 pg (28.0-34.0); Mean Corpuscular Volume 90.3 fl (80-94); Mean Platelet Volume 9.8 fL (7.4-10.4); Monocytes # 0.7 10^3/uL (0.2-0.9); Monocytes % 10.6 %; Neutrophils # 5.04 10^3/uL (1.8-7.7); Neutrophils % 77.8 %; Nucleated Red Blood Cells % 0 %; Platelet Count 322 10^3/cmm (130-400); Red Blood Count 4.33 10^6/uL (4.1-5.3); Red Cell Distribution Width 13.3 % (12.1-15.1); White Blood Count 6.5 10^3/uL (4.0-10.0)
--- NOTE | 2022-05-24 16:40 | XRR_ITS ---
PROCEDURE INFORMATION: Exam: XR Chest Exam date and time: 05/24/2022 5:18 PM Age: 67 years old Clinical indication: Device placement; Ng tube; Additional info: Ng placement TECHNIQUE: Imaging protocol: Radiologic exam of the chest. Views: 1 view. COMPARISON: CT abdomen pelvis con [id number] 05/24/2022 3:43 PM FINDINGS: Tubes, catheters and devices: Distal aspect of the G-tube is positioned in the left upper quadrant abdomen in the expected location of the stomach. Lungs: Unremarkable. No consolidation. Pleural spaces: Unremarkable. No pleural effusion. No pneumothorax. Heart/Mediastinum: Unremarkable. No cardiomegaly. Bones/joints: Unremarkable. XR/XR chest 1V portable [id number] IMPRESSION: Distal aspect of the G-tube is positioned in the left upper quadrant abdomen in the expected location of the stomach.
[2022-05-24 17:20] LABS: Alanine Aminotransferase 25 U/L (0-41); Albumin Level 3.7 g/dL (3.5-5.2); Alkaline Phosphatase 58 U/L (40-130); Anion Gap 17.7 (5-19); Aspartate Amino Transferase 18 U/L (0-40); Blood Urea Nitrogen 12 mg/dL (8-23); Calcium 9.5 mg/dL (8.5-10.5); Carbon Dioxide 31 mmol/L (22-29); Chloride 89 mmol/L (98-107); Globulin 3.4 g/dL (1.3-4.6); Glomerular Filtration Rate 111.8 mL/min (90-130); Glucose 212 mg/dL (65-115); Osmolality Calculated 284 mOsm/kg (285-295); Potassium 3.7 mmol/L (3.5-5.1); Sodium 134 mmol/L (136-145); Total Bilirubin 0.3 mg/dL (0.15-1.2); Total Protein 7.1 g/dL (6.6-8.7)
[2022-05-24] MEDS: LORazepam 2 mg/mL INJ 1 mL IVP (17:53)
[2022-05-24] MEDS: promethazine 25 mg/mL SDV 1 mL IM (18:24)
--- NOTE | 2022-05-24 18:38 | P.HP_ITS ---
Providers/Chief Complaint Admitting Physician: Dwaine Treadwell MD Primary Care Provider: Romelia Hernandez Chief Complaint: weakness,N/V/D History of Present Illness Lasha Glae is a 67 year old male with past medical history of morbid obesity, depression, hypertension, obstructive sleep apnea on CPAP presented to the ER today with complaints of nausea and vomiting which has been ongoing for last 1 to 2 days along with abdominal distention. Denies any abdominal pain. Complai [place] of having alternating constipation and diarrhea for last 1 week with last bowel movement today morning. Patient occasionally passes flatus. Denies any hematemesis, melena. Denies any sick contact. CT scan in the ER showed partial small bowel obstruction. Given nausea and vomiting NG tube was placed and surgery was consulted. On examination patient lying comfortably in bed, denies any further abdominal discomfort or nausea. Review of Systems General: Reports: 10 or more systems reviewed and unremarkable except in HPI and below Const: Denies: fever(s), chills, body aches, change in appetite, change in weight, malaise, night sweats, diaphoresis, change in sleep pattern, daytime sleepiness or snoring Eyes: Denies: change in vision, blurry vision, photophobia, eye discomfort or eye discharge ENMT: Denies: throat pain, enlarged tonsils, hoarseness, mouth pain, oral sores, dry mouth, tinnitus, nasal congestion or post nasal drip Card: Denies: chest pain, palpitations, irregular heart rhythm, edema, swelling of feet/ankles, lightheadedness, syncope, pre-syncope, dyspnea on exertion, orthopnea, leg pain with exertion or acrocyanosis Resp: Denies: dyspnea, productive cough, non-productive cough, wheezing, stridor, pain on inspiration, change in phlegm color, hemoptysis or chest congestion GI: Denies: abdominal pain, nausea, vomiting, hematemesis, coffee ground emesis, dysphagia, heartburn, diarrhea, constipation, bloating, GI cramping, change in bowel habits, pain on defecation, hematochezia or melena : Denies: flank pain, difficulty urinating, dysuria, urinary frequency, urinary urgency, urinary hesitancy, urinary dribbling, difficulty starting urination, change in urine stream, nocturia or hematuria Musc: Denies: neck pain, back pain, extremity pain, joint pain, joint swelling, joint redness, joint stiffness or limited range of motion Neuro: Denies: headache(s), numbness in extremities, weakness in extremities, sensory changes, lack of coordination, difficulty walking, frequent falls, dizziness, vertigo, confusion, Slurred speech present, difficulty communicating thoughts or seizure-like activity Psych: Denies: anxiety, depression, mood swings, panic attacks, hopelessness or irritability Endo: Denies: polyuria, polydipsia, tired all the time, cold intolerance, excessive sweating, flushing or heat intolerance South/Lymph: Denies: easy bruising or easy bleeding All/Imm: Denies: tongue swelling, facial swelling or acute wheezing Medications/Allergies Home Medications Medication Instructions Recorded Confirmed Last Taken Type multivitamin 1 cap PO QAM 03/03/19 05/24/22 05/24/22 History acetaminophen 650 mg 1,000 mg PO TID PRN Pain 05/19/19 05/24/22 Unknown History tablet,extended release (Tylenol 8 Hour) glucosamine 750 km-icpubsryogx-ave 1 tab PO DAILY 05/19/19 05/24/22 05/24/22 History no1 625 mg-C 30 mg-angy 1 mg tablet (Putfpyfhyvr-Wgdlxygykry-UGX) psyllium husk 0.4 gram capsule 2.4 gm PO QID 05/19/19 05/24/22 05/24/22 History (Fiber (psyllium husk)) ascorbic acid (vitamin C) 500 mg 500 mg PO DAILY 09/14/19 05/24/22 05/24/22 History capsule meloxicam 15 mg tablet 15 mg PO DAILY 09/14/19 05/24/22 05/24/22 History cetirizine 10 mg tablet (Zyrtec) 10 mg PO DAILY 02/05/21 05/24/22 05/24/22 History cholecalciferol (vitamin D3) 25 25 mcg PO BID 02/05/21 05/24/22 05/24/22 History mcg (1,000 unit) capsule primidone 50 mg tablet 50 mg PO BID 02/05/21 05/24/22 05/24/22 History propranolol 40 mg tablet 40 mg PO BID 02/05/21 05/24/22 05/24/22 History tamsulosin 0.4 mg capsule 0.8 mg PO BEDTIME 02/05/21 05/24/22 05/23/22 History magnesium 200 mg tablet 400 mg PO DAILY 08/22/21 05/24/22 05/23/22 History hydroxyzine HCl 25 mg tablet 25 mg PO BID PRN anxiety #60 tabs 02/20/22 05/24/22 Unknown Rx bupropion HCl 150 mg 24 hr tablet, 150 mg PO QAM #10 tabs 05/15/22 05/24/22 05/24/22 Rx extended release atorvastatin 20 mg tablet 20 mg PO DAILY 05/24/22 05/24/22 05/23/22 History echinacea purpurea extract 125 mg 125 mg PO DAILY 05/24/22 05/24/22 05/24/22 History tablet (echinacea) meclizine 25 mg tablet 25 mg PO DAILY PRN Dizziness 05/24/22 05/24/22 Unknown History sertraline 100 mg tablet 200 mg PO QAM 05/24/22 05/24/22 05/24/22 History tramadol 50 mg tablet 50 mg PO Q4H PRN pain 05/24/22 05/24/22 Unknown History Allergies Allergy/AdvReac Type Severity Reaction Status Date / Time metformin Allergy diarrhea Verified 05/15/22 08:53 PFSH Acute PFSH: Medical History Encounter for long-term opiate analgesic use Generalized anxiety disorder History of perforated ear drum Major depressive disorder, recurrent, in partial remission Major depressive disorder, recurrent, moderate Obesity Psychiatric care Family History Father Cancer stomach cancer Mother Hypertension Denies family history of Anesthesia complication Bleeding disorder Social History Smoking and tobacco status: never smoked Second hand smoke exposure: No Smoking risk assessment/counseling performed?: Yes Alcohol intake: never Lives independently: Yes Household members: spouse Housing: House Marital status: service: No Current occupational status: retired and disabled Current occupational exposures/hazards: No Pets and animals: No Current gender identity: Male Tiffany/Scientologist: Restoration Special tiffany needs: No Agree to transfusion: No Financial difficulty paying for basics: Decline to Answer Vitals/I&O/Wt Last Vital Signs Temp 98.5 F 05/24/22 14:58 Pulse 80 05/24/22 14:58 Resp 18 05/24/22 14:58 BP 162/86 05/24/22 16:00 Pulse Ox 99 05/24/22 18:15 05/24/22 05/24/22 05/24/22 06:59 14:59 22:59 Intake Total 1000 / 1000 Balance 1000 / 1000 Weight last 48 hrs Weight 158.757 kg Physical Exam Narrative: General: No acute distress, AO x3 HEENT: PERRLA, pupils bilaterally equal and reactive Chest: Normal vesicular breath sounds, no added sounds, equal good air entry bilaterally CVS: S1-S2 regular, no murmurs, no tachycardia, no gallops, no rubs Abdomen: Soft, nontender, no organomegaly, bowel sounds present Neuro: No focal deficits, no facial deformity, AO x3, power 5/5 in all limbs Data 05/24/22 15:17 05/24/22 15:17 A&P Assessment and plan (1) SBO (small bowel obstruction): Conservative treatment. Surgery consulted. Patient does have history of mesenteric mass. Patient CT abdomen pelvis results. NG tube. Serial abdominal examination. NPO. Protonix daily, Zofran as needed. (2) Major depressive disorder, recurrent, moderate: Holding off on oral medications. Haldol 1 mg IM as needed. Will try to restart oral medication as soon as possible. (3) Excessive daytime sleepiness: (4) Mesenteric mass: Plan Hypertension: Goal blood pressure less than 140/90 mmHg. At home takes propranolol 40 mg twice daily. For now switch to IV metoprolol 5 mg every 6 hourly for heart rate of more than 110 bpm to be held for blood pressure of less than 110 mmHg. Type 2 diabetes mellitus: Check A1c. Insulin sliding scale at low-dose protocol every 6 hourly as patient is NPO. Full code. NPO. Heparin 5000 every 12 hourly. Protonix for PUD prophylaxis Attestations Medical Necessity Statement*: Admission for more than 2 midnights for management of small bowel obstruction Diagnoses SBO (small bowel obstruction) K56.609 Major depressive disorder, recurrent, moderate F33.1 Excessive daytime sleepiness G47.19 Mesenteric mass K63.89
[2022-05-24] MEDS: heparin 5,000 unit/mL INJ 1 mL 5000 UNIT SUBCUT (20:18)
[2022-05-24] MEDS: pantoprazole 40 mg SDV IVP (20:19)
[2022-05-24] MEDS: sodium chlor 0.9% + KCl 20 mEq 20 MEQ/1,000 ML BAG 100 MEQ IV (20:19)
[2022-05-24 21:23] LABS: Iron 27 ug/dL (59-158); Percent Saturation 11.2 % (20-50); Thyroid Stimulating Hormone 2.92 uIU/mL (0.27-4.20); Total Iron Binding Capacity 240 mcg/dl; Unsaturated Iron Binding 213 ug/dL (112-347); Vitamin B12 685 pg/mL (232-1245)
[2022-05-24 22:14] LABS: Glucose Point of Care 218 mg/dL (70-110)
[2022-05-24] MEDS: insulin lispro 100 unit/1 mL SUBCUT (23:01)
[2022-05-24 23:03] LABS: Folate Level > 20.0 ng/mL (4.5-32.2)
[2022-05-24 23:55] LABS: Add Urine Microscopic? YES; Bilirubin Urine Neg (Negative); Blood Urine 2+ (Negative); Glucose Urine UA Norm (Normal); Ketones Urine 1+ (Negative); Leukocyte Esterase Urine Negative (Negative); Nitrate Urine Negative (Negative); Protein Urine 1+ (Negative); Specific Gravity, Urine 1.015 (1.005-1.030); Urine Appearance Clear (CLEAR); Urine Color Yellow (Yellow); Urobilinogen Urine Norm (Negative); pH Urine 6.5 (5-7)
[2022-05-24 23:56] LABS: Add Urine Culture? No; Bacteria Urine TRACE /hpf; RBC Urine 0-4 /hpf (0-2); Squamous Epithelial Cell Urine 0-4 /hpf (0-5); WBC Urine 0-4 /hpf (0-5)
[2022-05-25] VITALS (9 sets, daily range): BP systolic 118–148; BP diastolic 70–81; PULSE 77–94; RESP 16–18; TEMP 36.3–36.9; O2SAT 94–99
[2022-05-25 04:58] LABS: Glucose Point of Care 171 mg/dL (70-110)
[2022-05-25] MEDS: heparin 5,000 unit/mL INJ 1 mL 5000 UNIT SUBCUT ×2 (05:22→18:16)
[2022-05-25] MEDS: sodium chlor 0.9% + KCl 20 mEq 20 MEQ/1,000 ML BAG 100 MEQ IV ×2 (05:24→15:11)
[2022-05-25 05:36] LABS: Basophils % 0.3 %; Eosinophils % 0.6 %; Hemoglobin 11.7 g/dL (11.7-16.6); Lymphocytes # 0.7 10^3/uL (0.8-4.8); Mean Corpuscular HGB Conc 31.6 g/dL (30.0-36.0); Mean Corpuscular Hemoglobin 28.8 pg (28.0-34.0); Mean Corpuscular Volume 91.1 fl (80-94); Mean Platelet Volume 9.7 fL (7.4-10.4); Monocytes # 0.8 10^3/uL (0.2-0.9); Neutrophils # 4.86 10^3/uL (1.8-7.7); Neutrophils % 75.6 %; Nucleated Red Blood Cells % 0 %; Platelet Count 252 10^3/cmm (130-400); Red Blood Count 4.06 10^6/uL (4.1-5.3); Red Cell Distribution Width 13.3 % (12.1-15.1); White Blood Count 6.4 10^3/uL (4.0-10.0)
[2022-05-25 06:03] LABS: Alanine Aminotransferase 24 U/L (0-41); Albumin Level 3.2 g/dL (3.5-5.2); Alkaline Phosphatase 52 U/L (40-130); Blood Urea Nitrogen 11 mg/dL (8-23); Calcium 8.6 mg/dL (8.5-10.5); Carbon Dioxide 32 mmol/L (22-29); Chol HDL Ratio 2.38 mg/dL (1.0-5.00); Cholesterol 107 mg/dL (0-200); Glomerular Filtration Rate 133.6 mL/min (90-130); Glucose 178 mg/dL (65-115); HDL Cholesterol 45 mg/dL (60-100); LDL Cholesterol Calculated 35 mg/dL (50-129); LDL HDL Ratio 0.78 RATIO (0.00-3.22); Magnesium 2.2 mg/dL (1.7-2.3); Phosphorus 3.7 mg/dL (2.5-4.5); Total Bilirubin 0.3 mg/dL (0.15-1.2); Total Protein 6.2 g/dL (6.6-8.7); Triglycerides 133 mg/dL (0-150)
[2022-05-25 06:10] LABS: Aspartate Amino Transferase 22 U/L (0-40)
[2022-05-25 06:21] LABS: Estmated Average Glucose 177; Hemoglobin A1C 7.8 % (4.0-6.0)
--- NOTE | 2022-05-25 08:39 | PM.CONSULT ---
Providers/Reason For Consult Consulting Physician/Specialty*: Dr. Ap Mckeon, DO/General surgery Reason for Consult*: Partial small bowel obstruction Attending Physician: Dwaien Treadwell MD Primary Care Provider: Romelia Hernandez History of Present Illness History of Present Illness Lasha Gale is a 67 year old male, who is morbidly obese and has never had surgery on his abdomen, presented to the hospital with a 1 day history of nausea and vomiting. He denies any abdominal pain. Denies any hematemesis. He reports that his last bowel movement was yesterday morning and that he was passing flatus last night. While in the ER he had a CT of the abdomen pelvis which revealed a partial small bowel obstruction. He denies any recent travel. He does not believe he ate any bad food and has no sick contacts. Review of Systems General: Reports: 10 or more systems reviewed and unremarkable except in HPI and below Medications/Allergies Home Medications Medication Instructions Recorded Confirmed Last Taken Type multivitamin 1 cap PO QAM 03/03/19 05/24/22 05/24/22 History acetaminophen 650 mg 1,000 mg PO TID PRN Pain 05/19/19 05/24/22 Unknown History tablet,extended release (Tylenol 8 Hour) glucosamine 750 ya-qijimraittp-mpd 1 tab PO DAILY 05/19/19 05/24/22 05/24/22 History no1 625 mg-C 30 mg-angy 1 mg tablet (Zioajtelxye-Qixzqfeebgj-VJA) psyllium husk 0.4 gram capsule 2.4 gm PO QID 05/19/19 05/24/22 05/24/22 History (Fiber (psyllium husk)) ascorbic acid (vitamin C) 500 mg 500 mg PO DAILY 09/14/19 05/24/22 05/24/22 History capsule meloxicam 15 mg tablet 15 mg PO DAILY 09/14/19 05/24/22 05/24/22 History cetirizine 10 mg tablet (Zyrtec) 10 mg PO DAILY 02/05/21 05/24/22 05/24/22 History cholecalciferol (vitamin D3) 25 25 mcg PO BID 02/05/21 05/24/22 05/24/22 History mcg (1,000 unit) capsule primidone 50 mg tablet 50 mg PO BID 02/05/21 05/24/22 05/24/22 History propranolol 40 mg tablet 40 mg PO BID 02/05/21 05/24/22 05/24/22 History tamsulosin 0.4 mg capsule 0.8 mg PO BEDTIME 02/05/21 05/24/22 05/23/22 History magnesium 200 mg tablet 400 mg PO DAILY 08/22/21 05/24/22 05/23/22 History hydroxyzine HCl 25 mg tablet 25 mg PO BID PRN anxiety #60 tabs 02/20/22 05/24/22 Unknown Rx bupropion HCl 150 mg 24 hr tablet, 150 mg PO QAM #10 tabs 05/15/22 05/24/22 05/24/22 Rx extended release atorvastatin 20 mg tablet 20 mg PO DAILY 05/24/22 05/24/22 05/23/22 History echinacea purpurea extract 125 mg 125 mg PO DAILY 05/24/22 05/24/22 05/24/22 History tablet (echinacea) meclizine 25 mg tablet 25 mg PO DAILY PRN Dizziness 05/24/22 05/24/22 Unknown History sertraline 100 mg tablet 200 mg PO QAM 05/24/22 05/24/22 05/24/22 History tramadol 50 mg tablet 50 mg PO Q4H PRN pain 05/24/22 05/24/22 Unknown History Allergies Allergy/AdvReac Type Severity Reaction Status Date / Time metformin Allergy diarrhea Verified 05/15/22 08:53 Current Medications Generic Name Dose Route Start Last Admin Trade Name Freq PRN Reason Stop Dose Admin Heparin Sodium (Porcine) 5,000 unit 05/24/22 18:45 05/25/22 05:22 Heparin 5,000 Unit/Ml Inj 1 Ml SUBCUT 5,000 unit Q12H GAB Administration Potassium Chloride/Sodium Chloride 20 meq in 1,000 mls @ 100 mls/hr 05/24/22 18:45 05/25/22 05:24 Sodium Chlor 0.9% + Kcl 20 Meq IV 100 mls/hr .Q10H GAB Administration Insulin Human Lispro 0 unit 05/24/22 21:45 05/24/22 23:01 Insulin Lispro 100 Unit/1 Ml SUBCUT 4 unit Q6H GAB Administration Protocol Pantoprazole Sodium 40 mg 05/24/22 18:45 05/24/22 20:19 Pantoprazole 40 Mg Sdv IVP 40 mg Q24H GAB Administration PFSH Acute PFSH: Medical History Encounter for long-term opiate analgesic use Generalized anxiety disorder History of perforated ear drum Major depressive disorder, recurrent, in partial remission Major depressive disorder, recurrent, moderate Obesity Psychiatric care Family History Father Cancer stomach cancer Mother Hypertension Denies family history of Anesthesia complication Bleeding disorder Social History Smoking and tobacco status: never smoked Second hand smoke exposure: No Smoking risk assessment/counseling performed?: Yes Alcohol intake: never Lives independently: Yes Household members: spouse Housing: House Marital status: service: No Current occupational status: retired and disabled Current occupational exposures/hazards: No Pets and animals: No Current gender identity: Male Tiffany/Anabaptist: Hinduism Special tiffany needs: No Agree to transfusion: No Financial difficulty paying for basics: Decline to Answer Vitals/I&O/Wt Last Vital Signs Temp 98.2 F 05/25/22 07:51 Pulse 91 05/25/22 07:51 Resp 16 05/25/22 07:51 BP 132/77 05/25/22 07:51 Pulse Ox 94 05/25/22 07:51 O2 Del Method 05/25/22 04:00 O2 Flow Rate 3 05/25/22 04:00 05/24/22 05/25/22 05/25/22 22:59 06:59 14:59 Intake Total 1120 / 1120 908.333 / 8.333 Output Total 800 / 800 Balance 1120 / 1120 108.333 / 1228.333 Weight last 48 hrs Weight 404 lb Weight 350 lb Physical Exam Narrative: General : Patient is well developed , no acute distress, oriented x3 Head : Normal cephalic, a-traumatic. Ears : Pinnae and external canal are normal. Hearing is normal. Eyes : PERRLA, Sclera and injection are normal. No conjunctival discharge. Nose : Mucous membranes are without erythema. Throat : buccal mucosa is normal, gums are without significant recession or hypertrophy. Lungs : Equal chest rise bilaterally, no use of accessory muscles, trachea is midline. Cor : Rate and rhythm are normal. Abdomen : Soft, ND, NT, no g/r/m Extremities : No edema, no cyanosis or clubbing, dorsalis pedis pulses are present bilaterally, non-tender to palpation of calves. Upper extremities are normal bilaterally. Back : non-tender to palpation, no CVA tenderness. Neuro : CN II - XII intact, Upper and lower extremities have equal and full strength Data 05/25/22 05:18 05/25/22 05:18 A&P Assessment and plan (1) Partial small bowel obstruction: Plan Resolving Continue IV fluids NG tube was removed Clear liquid diet No acute surgical intervention Surgically stable for discharge when having a bowel movement and tolerating a regular diet Medical management per hospitalist Coding Level of Care Code Acute Code for Chg Fwd Diagnoses Partial small bowel obstruction K56.600
[2022-05-25 09:09] LABS: Osmolality Calculated 288 mOsm/kg (285-295); Potassium 3.7 mmol/L (3.5-5.1); Sodium 137 mmol/L (136-145)
[2022-05-25] MEDS: insulin lispro 100 unit/1 mL SUBCUT ×4 (09:09→20:09)
[2022-05-25 09:11] LABS: Anion Gap 13.7 (5-19); Chloride 95 mmol/L (98-107)
[2022-05-25] MEDS: sertraline 100 mg Tablet 200 MG PO (11:15)
[2022-05-25 11:53] LABS: Glucose Point of Care 164 mg/dL (70-110)
--- NOTE | 2022-05-25 14:51 | PM.PN ---
Subjective Subjective: No acute events overnight. Denies any nausea, vomiting, headache. States feeling better. NG tube was removed as per surgical recommendations today. Patient started on clear liquid diet. Patient denied any vomiting after consumption of liquid diet at breakfast. Vitals/I&O/Wt Last Vital Signs Temp 97.5 F L 05/25/22 11:56 Pulse 82 05/25/22 11:56 Resp 17 05/25/22 11:56 BP 118/72 05/25/22 11:56 Pulse Ox 97 05/25/22 11:56 O2 Del Method 05/25/22 04:00 O2 Flow Rate 3 05/25/22 04:00 05/24/22 05/25/22 05/25/22 22:59 06:59 14:59 Intake Total 1120 / 1120 908.333 / 2028.333 240 / 240 Output Total 800 / 800 Balance 1120 / 1120 108.333 / 1228.333 240 / 240 Weight last 48 hrs Weight 183.251 kg Weight 158.757 kg Physical Exam Narrative: General: No acute distress, AO x3 HEENT: PERRLA, pupils bilaterally equal and reactive Chest: Normal vesicular breath sounds, no added sounds, equal good air entry bilaterally CVS: S1-S2 regular, no murmurs, no tachycardia, no gallops, no rubs Abdomen: Soft, morbidly obese nontender, no organomegaly, bowel sounds present Neuro: No focal deficits, no facial deformity, AO x3, power 5/5 in all limbs Data 05/25/22 05:18 05/25/22 05:18 A&P Assessment and plan (1) SBO (small bowel obstruction): Conservative treatment. Appreciate surgical recommendations. NG tube removed. Diet advance as surgical team to clear liquid diet. Plan to advance further today if tolerating well. Bowel regimen. Frequent serial abdominal examination. Protonix daily, Zofran as needed. (2) Major depressive disorder, recurrent, moderate: Restart multiple home psych medications including bupropion, primidone, sertraline. (3) Excessive daytime sleepiness: (4) Mesenteric mass: Plan Hypertension: Goal blood pressure less than 140/90 mmHg. Restart home dose of propanolol Type 2 diabetes mellitus: Insulin sliding scale before meals and at bedtime. Full code. Carb consistent clear liquid diet Heparin 5000 every 12 hourly. Protonix for PUD prophylaxis Attestations Medical Necessity Statement*: Requires further hospitalization for management of partial small bowel obstruction Diagnoses SBO (small bowel obstruction) K56.609 Major depressive disorder, recurrent, moderate F33.1 Excessive daytime sleepiness G47.19 Mesenteric mass K63.89
[2022-05-25] MEDS: magnesium hydroxide 30 mL UDC PO (15:16)
[2022-05-25 17:04] LABS: Glucose Point of Care 179 mg/dL (70-110)
[2022-05-25] MEDS: propranolol 40 mg Tablet PO (18:16)
[2022-05-25] MEDS: primidone 50 mg Tablet PO (18:16)
[2022-05-25] MEDS: pantoprazole 40 mg SDV IVP (19:50)
[2022-05-25] MEDS: tamsulosin 0.4 mg Capsule 0.8 MG PO (19:53)
[2022-05-25 20:05] LABS: Glucose Point of Care 170 mg/dL (70-110)
[2022-05-26] VITALS (8 sets, daily range): BP systolic 121–144; BP diastolic 71–78; PULSE 73–90; RESP 18; TEMP 36.4–36.5; O2SAT 92–99
[2022-05-26 03:51] LABS: Basophils # 0.1 10^3/uL (0.0-0.1); Basophils % 0.8 %; Eosinophils # 0.1 10^3/uL (0.0-0.8); Eosinophils % 1.8 %; Hematocrit 35.5 % (42.0-52.0); Hemoglobin 11.1 g/dL (11.7-16.6); Lymphocytes # 0.9 10^3/uL (0.8-4.8); Lymphocytes % 13.9 %; Mean Corpuscular HGB Conc 31.3 g/dL (30.0-36.0); Mean Corpuscular Volume 92.7 fl (80-94); Mean Platelet Volume 9.1 fL (7.4-10.4); Monocytes # 0.8 10^3/uL (0.2-0.9); Monocytes % 12.4 %; Neutrophils # 4.34 10^3/uL (1.8-7.7); Nucleated Red Blood Cells % 0 %; Platelet Count 234 10^3/cmm (130-400); Red Blood Count 3.83 10^6/uL (4.1-5.3); Red Cell Distribution Width 13.5 % (12.1-15.1); White Blood Count 6.2 10^3/uL (4.0-10.0)
[2022-05-26 04:08] LABS: Alanine Aminotransferase 32 U/L (0-41); Alkaline Phosphatase 48 U/L (40-130); Anion Gap 12.9 (5-19); Aspartate Amino Transferase 27 U/L (0-40); Blood Urea Nitrogen 11 mg/dL (8-23); Carbon Dioxide 30 mmol/L (22-29); Chloride 99 mmol/L (98-107); Globulin 2.6 g/dL (1.3-4.6); Glomerular Filtration Rate 111.8 mL/min (90-130); Glucose 155 mg/dL (65-115); Osmolality Calculated 289 mOsm/kg (285-295); Potassium 3.9 mmol/L (3.5-5.1); Sodium 138 mmol/L (136-145); Total Bilirubin 0.2 mg/dL (0.15-1.2); Total Protein 5.6 g/dL (6.6-8.7)
[2022-05-26] MEDS: sodium chlor 0.9% + KCl 20 mEq 20 MEQ/1,000 ML BAG 100 MEQ IV ×2 (04:13→12:47)
[2022-05-26] MEDS: heparin 5,000 unit/mL INJ 1 mL 5000 UNIT SUBCUT (05:39)
[2022-05-26] MEDS: buPROPion XL (24 HR) 150 mg Tablet PO (05:39)
[2022-05-26] MEDS: sertraline 100 mg Tablet 200 MG PO (05:39)
[2022-05-26 06:34] LABS: Glucose Point of Care 158 mg/dL (70-110)
[2022-05-26] MEDS: insulin lispro 100 unit/1 mL SUBCUT ×2 (08:31→12:46)
[2022-05-26] MEDS: propranolol 40 mg Tablet PO (08:32)
[2022-05-26] MEDS: atorvastatin 40 mg Tablet 20 MG PO (08:32)
[2022-05-26] MEDS: primidone 50 mg Tablet PO (08:32)
--- NOTE | 2022-05-26 10:30 | PC.CHAP ---
Pastoral Care Encounter/Spiritual Assessment Type of Contact [] Declined clinical resource nurse visit [] Patient/Family/Request visit [] Outpatient visit [] Follow-up visit [] Physician referral [] Code/Alert [] Routine visit [] Staff referral [] Actively dying [] Patient sleeping [] Family support [] [] Out of room [] Palliative care [] [x] Receiving care in room [] Pre-surgical visit [] Trauma [] Long length of stay [] ICU visit [] Other: Relational/Emotional Strength [] Patient feels connected with others/family/visitors/staff [] Distress [] Loneliness/isolation [] Abandonment Spirituality of Patient [] Person of Tiffany [] Attends Taoism of their Tiffany [] Believes in Prayer [] Reads Bible or Druze materials [] There are Spiritual issues to be addressed Optical Coating Technician Interventions [] Prayer [] Active listening [] Non-anxious presence [] Spiritual/emotional support [] Crisis/trauma care [] Spiritual counseling [] Bereavement support [] Provided bereavement packet [] Provided Bible/devotional materials [] Provided toy/stuffed animal, coloring book to patient or family member [] Provided Communion [] Anointing/[place] [] Salvation [] Completed spiritual assessment [] Other: Impact on Illness or Injury [] Angry [] Fearful [] Anxious [] Often cries [] Exhaustion [] Unable to work [] Unable to attend adventism [] Unable to walk/stand [] Unable to read [] Unable to drive [] Unable to eat/drink [] Unable to sleep [] Unable to be with family [] Patient intubated [] Other: Summary Time spent with patient
[2022-05-26 11:57] LABS: Glucose Point of Care 147 mg/dL (70-110)
--- NOTE | 2022-05-26 13:47 | PM.PN ---
Subjective Subjective: Patient seen and examined. Denies nausea, emesis, abdominal pain. Positive BM/flatus Vitals/I&O/Wt Last Vital Signs Temp 97.7 F 05/26/22 11:24 Pulse 73 05/26/22 11:24 Resp 18 05/26/22 11:24 BP 121/71 05/26/22 11:24 Pulse Ox 99 05/26/22 11:24 O2 Del Method 05/26/22 11:24 O2 Flow Rate 3 05/26/22 11:24 FiO2 2.5 05/26/22 07:42 05/25/22 05/26/22 05/26/22 22:59 06:59 14:59 Intake Total 1218.333 / 6202.260 1365 / 2458.333 856.667 / 856.667 Balance 1218.333 / 2797.607 2842 / 2458.333 856.667 / 856.667 Weight last 48 hrs Weight 352 lb 11.2 oz Weight 404 lb Weight 350 lb Physical Exam Narrative: General: No acute distress, awake alert and oriented x3 Abdomen: Soft, nontender, nondistended, no guarding rebound or masses Data 05/26/22 03:42 05/26/22 03:42 A&P Assessment and plan (1) Partial small bowel obstruction: Plan Resolving Regular diet No acute surgical intervention Surgically stable for discharge when having a bowel movement and tolerating a regular diet Medical management per hospitalist Attestations Medical Necessity Statement*: Per primary Coding Level of Care Code Acute Code for Chg Fwd Diagnoses Partial small bowel obstruction K56.600
--- NOTE | 2022-05-26 14:12 | P.DS_ITS ---
Discharge Providers Date of Admission: 05/24/22 16:21 Date of Discharge: May 26, 2022 Attending Provider at Admission: Dwaine Treadwell MD Attending Provider at Discharge: Dwaine Treadwell MD Consults: Surgery: Dr. Mckeon Primary Care Provider: Romelia Hernandez Diagnoses at Discharge Discharge Diagnosis (1) Partial small bowel obstruction: Status: Acute (2) Major depressive disorder, recurrent, moderate: Status: Chronic (3) Encounter for long-term opiate analgesic use: Status: Chronic (4) Mesenteric mass: Status: Acute (5) Obstructive sleep apnea: Status: Chronic Reason for Visit Reason for Visit: weakness,N/V/D Hospital Course Hospital Course Lasha Gale is a 67 year old male with past medical history of morbid obesity, depression, hypertension, obstructive sleep apnea on CPAP presented to the ER today with complaints of nausea and vomiting which has been ongoing for last 1 to 2 days along with abdominal distention.? Denies any abdominal pain.? Complaining of having alternating constipation and diarrhea for last 1 week with last bowel movement today morning.? Patient occasionally passes flatus.? Denies any hematemesis, melena.? Denies any sick contact. CT scan in the ER showed partial small bowel obstruction.? Given nausea and vomiting NG tube was placed and surgery was consulted.? On examination patient lying comfortably in bed, denies any further abdominal discomfort or nausea. Patient was admitted to the hospital further evaluation and management of partial small bowel obstruction with abdominal distention. Surgery was consulted. He was treated conservatively with NG tube placement. Gradually patient regained bowel functions and he was advanced to full liquid to mechanical soft diet. Patient's had concern about severe weakness for which she is not able to do his ADLs. During hospitalization patient was seen by physical therapist and also seen walking around all by himself. Physical therapy recommended discharge to home. He has been discharged in stable condition to home on Aggressive Bowel Regimen. He Is to Follow-Up with His Primary Care Provider within Next 1 Week. Physical Exam Narrative: General: No acute distress, AO x3 HEENT: PERRLA, pupils bilaterally equal and reactive Chest: Normal vesicular breath sounds, no added sounds, equal good air entry bilaterally CVS: S1-S2 regular, no murmurs, no tachycardia, no gallops, no rubs Abdomen: Soft, morbidly obese nontender, no organomegaly, bowel sounds present Neuro: No focal deficits, no facial deformity, AO x3, power 5/5 in all limbs Discharge Data Studies Completed and Pending Completed Studies During Hospitalization Category Date Time Status CT abdomen pelvis wo con [id number] Stat Cat Scan 05/24/22 15:18 Completed XR chest 1V portable [id number] Stat Exams 05/24/22 16:40 Completed Pending at discharge Category Date Time Status Urinalysis Routine Lab 05/25/22 21:30 Ordered Radiology Impressions Abdomen/Pelvis CT 05/24/22 15:18 IMPRESSION: 1. The findings as stated above are consistent with a mid to distal small bowel obstruction. 2. Fatty infiltration of the liver. Chest X-Ray 05/24/22 16:40 IMPRESSION: Distal aspect of the G-tube is positioned in the left upper quadrant abdomen in the expected location of the stomach. Laboratory Results WBC 6.2 10^3/uL (4.0-10.0) 05/26/22 03:42 RBC 3.83 10^6/uL (4.1-5.3) L 05/26/22 03:42 Hgb 11.1 g/dL (11.7-16.6) L 05/26/22 03:42 Hct 35.5 % (42.0-52.0) L 05/26/22 03:42 MCV 92.7 fl (80-94) 05/26/22 03:42 MCH 29.0 pg (28.0-34.0) 05/26/22 03:42 MCHC 31.3 g/dL (30.0-36.0) 05/26/22 03:42 RDW 13.5 % (12.1-15.1) 05/26/22 03:42 Plt Count 234 10^3/cmm (130-400) 05/26/22 03:42 MPV 9.1 fL (7.4-10.4) 05/26/22 03:42 Neut % (Auto) 70.0 % 05/26/22 03:42 Lymph % (Auto) 13.9 % 05/26/22 03:42 [place] % (Auto) 12.4 % 05/26/22 03:42 Eos % (Auto) 1.8 % 05/26/22 03:42 Baso % (Auto) 0.8 % 05/26/22 03:42 Neut # (Auto) 4.34 10^3/uL (1.8-7.7) 05/26/22 03:42 Lymph # (Auto) 0.9 10^3/uL (0.8-4.8) 05/26/22 03:42 [place] # (Auto) 0.8 10^3/uL (0.2-0.9) 05/26/22 03:42 Eos # (Auto) 0.1 10^3/uL (0.0-0.8) 05/26/22 03:42 Baso # (Auto) 0.1 10^3/uL (0.0-0.1) 05/26/22 03:42 Nucleated RBC % (auto) 0 % 05/26/22 03:42 Nucleated RBCs # 0.0 /100WBC 05/26/22 03:42 Sodium 138 mmol/L (136-145) 05/26/22 03:42 Potassium 3.9 mmol/L (3.5-5.1) 05/26/22 03:42 Chloride 99 mmol/L (98-107) 05/26/22 03:42 Carbon Dioxide 30 mmol/L (22-29) H 05/26/22 03:42 Anion Gap 12.9 (5-19) 05/26/22 03:42 BUN 11 mg/dL (8-23) 05/26/22 03:42 Creatinine 0.7 mg/dL (0.7-1.2) 05/26/22 03:42 GFR Calculation 111.8 mL/min (90-130) 05/26/22 03:42 Glucose 155 mg/dL (65-115) H 05/26/22 03:42 POC Glucose 147 mg/dL (70-110) H 05/26/22 11:32 Estimat Average Glucose 177 05/25/22 05:18 Hemoglobin A1c 7.8 % (4.0-6.0) H 05/25/22 05:18 Calculated Osmolality 289 mOsm/kg (285-295) 05/26/22 03:42 Lactic Acid 2.0 mmol/L (0.5-2.2) 05/24/22 17:09 Calcium 8.0 mg/dL (8.5-10.5) L 05/26/22 03:42 Phosphorus 3.7 mg/dL (2.5-4.5) 05/25/22 05:18 Magnesium 2.2 mg/dL (1.7-2.3) 05/25/22 05:18 Iron 27 ug/dL (59-158) L 05/24/22 15:17 TIBC 240 mcg/dl 05/24/22 15:17 % Saturation 11.2 % (20-50) L 05/24/22 15:17 Unsat Iron Binding 213 ug/dL (112-347) 05/24/22 15:17 Total Bilirubin 0.2 mg/dL (0.15-1.2) 05/26/22 03:42 AST 27 U/L (0-40) 05/26/22 03:42 ALT 32 U/L (0-41) 05/26/22 03:42 Alkaline Phosphatase 48 U/L (40-130) 05/26/22 03:42 Total Protein 5.6 g/dL (6.6-8.7) L 05/26/22 03:42 Albumin 3.0 g/dL (3.5-5.2) L 05/26/22 03:42 Globulin 2.6 g/dL (1.3-4.6) 05/26/22 03:42 Triglycerides 133 mg/dL (0-150) 05/25/22 05:18 Cholesterol 107 mg/dL (0-200) 05/25/22 05:18 LDL Cholesterol, Calc 35 mg/dL (50-129) L 05/25/22 05:18 HDL Cholesterol 45 mg/dL (60-100) L 05/25/22 05:18 LDL/HDL Ratio 0.78 RATIO (0.00-3.22) 05/25/22 05:18 Cholesterol/HDL Ratio 2.38 mg/dL (1.0-5.00) 05/25/22 05:18 Vitamin B12 685 pg/mL (232-1245) 05/24/22 15:17 Folate > 20.0 ng/mL (4.5-32.2) 05/24/22 15:17 Procalcitonin 0.10 ng/mL (0-0.5) 05/24/22 15:17 TSH 2.92 uIU/mL (0.27-4.20) 05/24/22 15:17 Urine Color Yellow (Yellow) 05/24/22 22:00 Urine Appearance Clear (CLEAR) 05/24/22 22:00 Urine pH 6.5 (5-7) 05/24/22 22:00 Ur Specific [place] 1.015 (1.005-1.030) 05/24/22 22:00 Urine Protein 1+ (Negative) H 05/24/22 22:00 Urine Glucose (UA) Norm (Normal) 05/24/22 22:00 Urine Ketones 1+ (Negative) H 05/24/22 22:00 Urine Blood 2+ (Negative) H 05/24/22 22:00 Urine Nitrate Negative (Negative) 05/24/22 22:00 Urine Bilirubin Neg (Negative) 05/24/22 22:00 Urine Urobilinogen Norm mg/dL (Negative) 05/24/22 22:00 Ur Leukocyte Esterase Negative (Negative) 05/24/22 22:00 Urine RBC 0-4 /hpf (0-2) H 05/24/22 22:00 Urine WBC 0-4 /hpf (0-5) H 05/24/22 22:00 Ur Squamous Epith Cells 0-4 /hpf (0-5) H 05/24/22 22:00 Amorphous Sediment Not Reportable 05/24/22 22:00 Urine Bacteria Trace /hpf (NONE) 05/24/22 22:00 Vitals Last Vital Signs Temp 97.7 F 05/26/22 11:24 Pulse 73 05/26/22 11:24 Resp 18 05/26/22 11:24 BP 121/71 05/26/22 11:24 Pulse Ox 99 05/26/22 11:24 O2 Del Method 05/26/22 11:24 O2 Flow Rate 3 05/26/22 11:24 FiO2 2.5 05/26/22 07:42 Discharge Plan Discharge Patient Disposition: Home Health Service Condition: Stable Prescriptions: New magnesium hydroxide [Milk of Magnesia] 400 mg/5 mL suspension 5 ml PO BID PRN (Reason: constipation) Qty: 355 0RF sennosides-docusate sodium [Colace 2-In-1] 8.6-50 mg tablet 1 tab-cap PO DAILY PRN (Reason: constipation) Qty: 14 0RF Continued faamzmnw-zabfr-mnl5-C-angy-bor [Ltajjjua-Blsez-PPY(with boron)] 081-261-63-1 mg tablet 1 tab PO DAILY psyllium husk [Fiber (psyllium husk)] 0.4 gram capsule 2.4 gm PO QID primidone 50 mg tablet 50 mg PO BID magnesium 200 mg tablet 400 mg PO DAILY meloxicam 15 mg tablet 15 mg PO DAILY ascorbic acid (vitamin C) 500 mg capsule 500 mg PO DAILY tamsulosin 0.4 mg capsule 0.8 mg PO BEDTIME multivitamin Capsule 1 cap PO QAM acetaminophen [Tylenol 8 Hour] 650 mg tablet extended release 1,000 mg PO TID PRN (Reason: Pain) cetirizine [Zyrtec] 10 mg tablet 10 mg PO DAILY propranolol 40 mg tablet 40 mg PO BID cholecalciferol (vitamin D3) 25 mcg (1,000 unit) capsule 25 mcg PO BID hydroxyzine HCl 25 mg tablet 25 mg PO BID PRN (Reason: anxiety) Qty: 60 2RF bupropion HCl 150 mg tablet extended release 24 hr 150 mg PO QAM Qty: 10 0RF Rx Instructions: For 1 week, take one tablet by mouth every morning, then one every other day for 1 week, then stop atorvastatin 20 mg Tablet 20 mg PO DAILY meclizine 25 mg Tablet 25 mg PO DAILY PRN (Reason: Dizziness) echinacea 125 mg Tablet 125 mg PO DAILY Rx Instructions: administer with meals sertraline 100 mg tablet 200 mg PO QAM Rx Instructions: Take two tablets by mouth every morning tramadol 50 mg tablet 50 mg PO Q4H PRN (Reason: pain) Rx Instructions: fill on or after 04/30/21 and 05/30/21 Discharge Orders: Discharge Order (Routine); Ordered 05/26/22 Ordered By: Dwaine Treadwell Referrals: Romelia Hernandez PA [Primary Care Provider] - 06/03/22 10:10 am Discharge Diet: Regular Discharge Activity: Resume usual activity and Increase activity as tolerated Patient Instructions: Opioid Safety Activity Restrictions/Additional Instructions: Follow-up with a primary care provider within next 1 week. Bowel regimen as needed. Continue to advance diet gradually within next 3 to 4 days. Discharge Attestations Time Spent in Discharge Care*: greater than 30 min Specific Discharge Activities: educating patient, discussing with pcp/other providers, discussing with rn field case manager/social workers/dc planners, documenting/other paperwork and evaluating patient/reviewing data Status at Discharge: Cognitive status at discharge: cognitively intact , Behavioral status at discharge: cooperative , Functional status at discharge: independent ambulation , Overall status at discharge: patient is back to baseline Quality Metrics Clinical Quality Measures [ No reported AMI, CVA or VTE this stay] Coding Level of Care Code 15176 Total time (in minutes) for Discharge: 45 Diagnoses Partial small bowel obstruction K56.600 Major depressive disorder, recurrent, moderate F33.1 Encounter for long-term opiate analgesic use Z79.891 Mesenteric mass K63.89 Obstructive sleep apnea G47.33
== END 2022-05-26 16:01 | disposition home health service (06) | DRG 389 ==
LOC: ER 17:26 → MEDSURG 17:27
PROVIDERS: Admitting Provider Student in an Organized Health Care Education/Training Program; Emergency Provider Family Medicine; PCP Physician Assistant; Visit Provider Student in an Organized Health Care Education/Training Program
DX: K56.600 Partial intestinal obstruction, unspecified as to cause (principal); F33.9 Major depressive disorder, recurrent, unspecified; Z68.43 Body mass index [BMI] 50.0-59.9, adult; E66.01 Morbid (severe) obesity due to excess calories; I10 Essential (primary) hypertension; G47.33 Obstructive sleep apnea (adult) (pediatric); Z99.89 Dependence on other enabling machines and devices; Z79.891 Long term (current) use of opiate analgesic; F41.1 Generalized anxiety disorder; K63.89 Other specified diseases of intestine; G47.10 Hypersomnia, unspecified
CPT/HCPCS: 36415; 36416; 71045; 74176; 80053; 80061; 81001; 82607; 82746; 82962; 83036; 83540; 83550; 83605; 83735; 84100; 84145; 84443; 85025; 93005; 94664; 96372; 96374; 96375; 97161; 97530; 99285; C9113; J1644; J1815; J2060; J2405; J2550; J3480; J7030

== ENCOUNTER → 2023-06-08 08:57 | Outpatient (BNVA) | payer MEDICARE, SELFPAY | PROVIDERS: PCP Physician Assistant; Referring Provider Nurse Practitioner Psychiatric/Mental Health; Visit Provider Psychiatry & Neurology Neurology | DX: R41.3 Other amnesia (principal); R29.818 Other symptoms and signs involving the nervous system; F33.41 Major depressive disorder, recurrent, in partial remission; F41.1 Generalized anxiety disorder; E55.9 Vitamin D deficiency, unspecified; Z87.828 Personal history of other (healed) physical injury and trauma | CPT/HCPCS: 99203 ==

== ENCOUNTER 2023-06-23 08:34 | Outpatient (CLI) | payer MEDICARE, SELFPAY ==
--- NOTE | 2023-06-23 08:41 | XR_ITS ---
WS: [id number] [address] REASON FOR EXAM: S05.92XA - Unspecified injury of left eye and orbit, init... FINDINGS: No bony abnormality of the facial bones. No metallic foreign body identified within the confines of either orbit. XR/[place] [id number] IMPRESSION: No intraorbital metallic foreign body.
--- NOTE | 2023-06-23 09:00 | USCV_ITS ---
Lasha Gale Age: 68 Gender: M : 1955 Exam Date: 06/23/2023 08:50 Ordering Phys: Zeke Wallace MD Technologist: BEN Exam Location: [facility] – [place] Indication: MEMORY LOSS Risk Factors: Previous Vascular Surgery: Right Brachial BP: / Left Brachial BP: / Right Left Velocity (cm/s) Spectral Plaque Velocity (cm/s) Spectral Plaque Syst/Diast Broadening Syst/Diast Broadening 114.60/21.90 Prox CCA 129.90/ 27.20 106.60/21.80 Mid CCA 92.30 / 18.40 96.90/ 20.70 Distal CCA 95.70 / 16.50 65.00/ 11.30 Prox ICA 65.70 / 14.30 87.40/ 17.40 Mid ICA 67.00 / 20.60 68.20/ 17.90 Distal ICA 54.40 / 16.70 87.70 ECA 91.60 0.90 ICA/CCA 0.70 Antegrade Vertebral Antegrade 35.40/ 9.60 cm/s 32.80/ 7.30 cm/s Tri Subclavian Tri 116.8 136.4 0 0 FINDINGS Comparison: none available. No significant elevation of systolic or diastolic velocities. Waveforms are normal. Mild carotid atherosclerosis. CONCLUSIONS Bilateral ICA stenosis less than 50%. Dr. Jacinda Childs DO (Electronically Signed) Final Date: 23 June 2023 15:36 S
[2023-06-23 09:46] LABS: Basophils # 0.1 10^3/uL (0.0-0.1); Basophils % 0.7 %; Eosinophils # 0.2 10^3/uL (0.0-0.8); Eosinophils % 2.7 %; Hematocrit 39.8 % (37-53); Lymphocytes # 1.2 10^3/uL (0.8-4.8); Lymphocytes % 13.2 %; Mean Corpuscular HGB Conc 32.2 g/dL (30-55); Mean Corpuscular Hemoglobin 28.9 pg (27-33); Mean Corpuscular Volume 89.8 fl (82-101); Mean Platelet Volume 9.4 fL (7.4-10.4); Monocytes # 0.5 10^3/uL (0.2-0.9); Monocytes % 5.3 %; Neutrophils # 6.79 10^3/uL (1.8-7.7); Neutrophils % 77.8 %; Nucleated Red Blood Cells % 0 %; Platelet Count 249 10^3/cmm (157-399); Red Blood Count 4.43 10^6/uL (3.85-5.65); Red Cell Distribution Width 14.2 % (12.1-15.1); White Blood Count 8.73 10^3/uL (3.29-11.43)
[2023-06-23 10:20] LABS: Alanine Aminotransferase 21 U/L (0-41); Alkaline Phosphatase 77 U/L (40-130); Anion Gap 12.6 (5-19); Aspartate Amino Transferase 17 U/L (0-40); Blood Urea Nitrogen 13 mg/dL (8-23); Calcium 9.2 mg/dL (8.5-10.5); Carbon Dioxide 29 mmol/L (22-29); Chloride 99 mmol/L (98-107); Free T4 Free Thyroxine 1.04 ng/dL (0.82-1.77); Globulin 3.2 g/dL (1.3-4.6); Glomerular Filtration Rate 111.5 mL/min (90-130); Glucose 125 mg/dL (65-115); Magnesium 2.1 mg/dL (1.7-2.3); Osmolality Calculated 284 mOsm/kg (285-295); Potassium 4.6 mmol/L (3.5-5.1); Sodium 136 mmol/L (136-145); T3 Free 2.3 PG/ML (2.0-4.4); Thyroid Stimulating Hormone 2.71 uIU/mL (0.27-4.20); Total Bilirubin 0.3 mg/dL (0.15-1.2); Total Protein 7.2 g/dL (6.6-8.7)
[2023-06-23 11:04] LABS: Folate Level > 20.0 ng/mL (4.5-32.2)
[2023-06-23 11:31] LABS: 25 Hydroxy Vitamin D 36 ng/mL (30-100); Vitamin B12 679 pg/mL (232-1245)
[2023-06-24 14:28] LABS: Lymes IGG WB <0.90 index
[2023-06-27 04:25] LABS: Methylmalonic Acid 187 nmol/L (87-318)
[2023-07-01 13:44] LABS: Apolipoprotein E (ApoE) Isofor E3/E3
[2023-07-04 23:10] LABS: Treponema pallidum Ab NON-REACTIVE
== END 2023-06-23 08:35 | disposition home or self-care (01) ==
LOC: RAD 08:37
PROVIDERS: PCP Physician Assistant; Visit Provider Psychiatry & Neurology Neurology
DX: F41.1 Generalized anxiety disorder (principal); R26.89 Other abnormalities of gait and mobility; R41.3 Other amnesia; F33.41 Major depressive disorder, recurrent, in partial remission; Z79.891 Long term (current) use of opiate analgesic; E55.9 Vitamin D deficiency, unspecified; S05.92XA Unspecified injury of left eye and orbit, initial encounter; X58.XXXA Exposure to other specified factors, initial encounter; I65.23 Occlusion and stenosis of bilateral carotid arteries
CPT/HCPCS: 70200; 80053; 82306; 82542; 82607; 82746; 83735; 83921; 84439; 84443; 84481; 85025; 86617; 86780; 93880

== ENCOUNTER 2023-07-28 10:42 | Outpatient (CLI) | payer MEDICARE, MEDICAID, SELFPAY ==
--- NOTE | 2023-07-28 11:00 | MR_ITS ---
WS: [id number] MRI HEAD WITH CONTRAST TECHNIQUE: Sagittal T1, T2 axial, T2 axial FLAIR, axial susceptibility weighted imaging, axial diffus ion weighted images, and coronal T2 images were obtained. Pre and post-T1 axial and post T1 coronal i mages. ADC and FSPGR images. CLINICAL INFORMATION: R41.3 - Other amnesia COMPARISON: None. FINDINGS: No evidence of restricted diffusion to suggest acute ischemia. Ventricular system and basal cisterns are patent. Normal posterior fossa. Normal vascular flow voids at the skull base. No extra-axial flui d collections. No evidence of mass or mass effect. Paranasal sinuses and mastoid air cells are well a erated. Mild mucosal thickening in the mastoid air cells. Normal posterior nasopharynx. No hemosiderin on susceptibly weighted images. Normal optic chiasm and pituitary infundibulum. Mild t o moderate symmetric atrophy temporal lobes and hippocampal formations. Mild small vessel changes. Mo derate parenchymal volume loss. No abnormal gadolinium enhancement. MR/MR head wo/w con [id number] IMPRESSION: 1. No evidence of restricted diffusion to suggest acute ischemia. 2. Mild small vessel changes with moderate parenchymal volume loss. 3. No hemosiderin on the susceptibly weighted images. 4. Mild to moderate symmetric atrophy temporal lobes and hippocampal formation s. 5. No abnormal gadolinium enhancement.
[2023-07-28] MEDS: gadobenate dimeglumine 20 mL vial IV (11:18)
== END 2023-07-28 10:43 | disposition home or self-care (01) ==
LOC: RAD 10:42
PROVIDERS: PCP Physician Assistant; Visit Provider Psychiatry & Neurology Neurology
DX: G31.89 Other specified degenerative diseases of nervous system (principal); J34.9 Unspecified disorder of nose and nasal sinuses; R41.3 Other amnesia
CPT/HCPCS: 70553; A9577

== ENCOUNTER → 2023-11-03 12:51 | Outpatient (BNVA) | payer MEDICARE, MEDICAID, SELFPAY | PROVIDERS: PCP Physician Assistant; Visit Provider Psychiatry & Neurology Neurology | DX: E55.9 Vitamin D deficiency, unspecified; R41.3 Other amnesia; F33.41 Major depressive disorder, recurrent, in partial remission; F41.1 Generalized anxiety disorder; R26.89 Other abnormalities of gait and mobility; S05.92XA Unspecified injury of left eye and orbit, initial encounter; R29.818 Other symptoms and signs involving the nervous system; X58.XXXA Exposure to other specified factors, initial encounter | CPT/HCPCS: 99212 ==